=== PATIENT | female | born 1940 | race Caucasian/White ===

== ENCOUNTER → 2016-08-12 | Outpatient (CLI) | payer BC ==
[~2016-08-12] MED LIST: ACET-1256 PO; ADVIN50/60 INH; ALBU1AER9 INH; ASPEC81 PO; ASTN; CETI10TA10 PO; CLTP PO; HYDR-5688 PO; MELA3CAP PO; NSNN50; PSYL0.524
== END | disposition home or self-care (01) ==
LOC: C.RDSM 13:57
PROVIDERS: ATTEND Orthopaedic Surgery Sports Medicine
DX: Z09 Encounter for follow-up examination after completed treatment for conditions other than malignant neoplasm (principal)

== ENCOUNTER → 2016-08-24 | Outpatient (CLI) | payer BC ==
--- NOTE | 2016-08-24 12:24 | DIAGNOSTIC IMAGING REPORT ---
ULTRASOUND OF THE THYROID GLAND CLINICAL HISTORY: Dysphonia. COMPARISON STUDY: Thyroid ultrasound dated 04/22 2009. TECHNIQUE: Real-time, grayscale, and color flow sonography of the thyroid gland is performed utilizing a high-frequency linear transducer. Images are reviewed in the transverse and longitudinal planes. FINDINGS: Right lobe: The right lobe of the thyroid gland is normal in size and homogeneous in echotexture, measuring 4.1 x 1.3 x 1.2 cm. Left lobe: The left lobe of the thyroid gland is normal in size and homogeneous in echotexture, measuring 4.5 x 2.0 x 1.3 cm. A hypoechoic nodule in the midpole measures 1.0 x 0.8 x 0.8 cm (previously measured 0.9 x 0.7 x 0.6 cm). Isthmus: The thyroid isthmus is normal in appearance and measures 0.3 cm in AP diameter. IMPRESSION: 1. The thyroid gland is normal in size and adjacent echotexture. 2. A 1.0 cm left thyroid nodule has not significantly changed in appearance dating back to 2008. Electronically signed by: Ge Hernandez M.D. 08/24/2016 12:22 PM Dictated Date/Time: 08/24/2016 12:20 PM
== END | disposition home or self-care (01) ==
LOC: C.ULTRBC 11:57
PROVIDERS: ATTEND Family Medicine
DX: R49.0 Dysphonia (principal); E04.1 Nontoxic single thyroid nodule; R92.1 Mammographic calcification found on diagnostic imaging of breast

== ENCOUNTER → 2016-08-24 | Outpatient (CLI) | payer BC ==
--- NOTE | 2016-08-24 12:36 | MAMMOGRAPHY REPORT ---
BILATERAL DIGITAL DIAGNOSTIC MAMMOGRAM TOMOSYNTHESIS WITH CAD: 08/24/2016 CLINICAL HISTORY: 12 month follow-up of left breast calcifications. The patient reports no current complaints. TECHNIQUE: Breast tomosynthesis in addition to standard 2D mammography was performed. Current study was also evaluated with a Computer Aided Detection (CAD) system. Bilateral CC and MLO 2-D and yue synthesis images and spot magnification left CC and ML views were obtained. COMPARISON: Comparison is made to exams dated: 04/07/2015 mammogram, 10/06/2014 mammogram, 4 mammogram, 03/27/2014 mammogram, 03/26/2013 mammogram, and 08/31/2011 mammogram - [facility]. BREAST COMPOSITION: There are scattered areas of fibroglandular density in both breasts. FINDINGS: Again noted is a small group of faint calcifications seen within the left upper outer sukhi drant, best seen on the current full-field images, which are stable compared to spot magnification v iews dating back to March 2014. In retrospect, the calcifications are also likely present on full -field views dating back to 2009 and 2008. Given the long-term stability, the calcifications are co nsidered benign. The remainder of both breasts are stable compared to prior exams, without suspicious masses, calcifi cations, or areas of architectural distortion noted. IMPRESSION: ACR BI-RADS CATEGORY 2: BENIGN The faint calcifications in the left upper outer quadrant are stable compared to multiple prior exam s, and are considered benign given long-term stability. There is no mammographic evidence of malign og in either breast. A 1 year screening mammogram is recommended. The patient has been verbally n otified of the results. Approximately 10% of breast cancers are not detected with mammography. A negative mammographic repor t should not delay biopsy if a clinically suggestive mass is present. Romy Cervantes M.D. ah/:08/24/2016 10:54:02 [employer]ters[employer] Screw Hole: Grace LÓPEZ)(Jess), [facility] letter sent: Normal 1/2 BI-RADS Code: ACR BI-RADS Category 2: Benign
== END | disposition home or self-care (01) ==
LOC: C.MAMM 09:54
PROVIDERS: ATTEND Family Medicine
DX: R92.1 Mammographic calcification found on diagnostic imaging of breast (principal)

== ENCOUNTER → 2016-09-29 | Outpatient (CLI) | payer BC ==
--- NOTE | 2016-09-29 11:49 | DIAGNOSTIC IMAGING REPORT ---
CHEST 2 VIEWS ROUTINE CLINICAL HISTORY: HOARSENESS (784.42) dyspnea COMPARISON STUDY: 11/24/2015 FINDINGS: Slight chronic interstitial prominence. Apical fibrotic scarring bilaterally. No acute infiltrate. Diaphragms are smooth but somewhat scarred on the right. This is unchanged. IMPRESSION: Chronic change. No acute process. Electronically signed by: Emmett Ruiz M.D. 09/29/2016 11:47 AM Dictated Date/Time: 09/29/2016 11:47 AM
== END | disposition home or self-care (01) ==
LOC: C.RADBBURG 11:33
PROVIDERS: ATTEND Physician Assistant
DX: R49.0 Dysphonia (principal)

== ENCOUNTER → 2016-10-21 | Outpatient (CLI) | payer BC ==
[2016-10-21 12:16] LABS: BASO % 0.3 %; BASO ABS # 0.02 K/uL (0-0.2); COMPLETE YES; EOS % 16.3 %; HEMATOCRIT 40.2 % (37-47); IG% 0.3 %; LYMPH ABS # 0.93 K/uL (1.2-3.4); MEAN CELL VOLUME 91.4 fL (80-100); MEAN CORPUSCULAR HEMOGLOBIN 30.5 pg (25-34); MEAN CORPUSCULAR HGB CONC 33.3 g/dl (32-36); MEAN PLATELET VOLUME 8.9 fL (7.4-10.4); MONO % 4.7 %; NEUT % 63.4 %; PLATELET COUNT 346 K/uL (130-400); WHITE BLOOD COUNT 6.18 K/uL (4.8-10.8)
[2016-10-21 12:24] LABS: PARTIAL THROMBOPLASTIN RATIO 1.1; PROTHROMBIN TIME (PATIENT) 10.5 SECONDS (9.0-12.0)
[2016-10-21 12:34] LABS: ALT/SGPT 20 U/L (12-78); BLOOD UREA NITROGEN 15 mg/dl (7-18); BUN/CREATININE RATIO 19.5 (10-20); CARBON DIOXIDE 27 mmol/L (21-32); CHLORIDE 106 mmol/L (98-107); CREATININE 0.76 mg/dl (0.60-1.20); GLUCOSE 104 mg/dl (70-99); POTASSIUM 4.2 mmol/L (3.5-5.1); SODIUM 139 mmol/L (136-145)
[2016-10-21 12:37] LABS: ALKALINE PHOSPHATASE 74 U/L (45-117); AST/SGOT 15 U/L (15-37)
[2016-10-21 12:55] LABS: CALCIUM 10.8 mg/dl (8.5-10.1)
== END | disposition home or self-care (01) ==
LOC: C.LAB1850 11:06
PROVIDERS: ATTEND Physician Assistant
DX: R05 Cough (principal)

== ENCOUNTER → 2016-10-25 | Outpatient (CLI) | payer BC ==
[~2016-10-25] MED LIST changes: +OPTIRAY 320 IV PRN
--- NOTE | 2016-10-25 14:24 | DIAGNOSTIC IMAGING REPORT ---
CHEST CT WITH CONTRAST CT DOSE: 262.16 mGycm HISTORY: Dyspnea R05 Cough [place] [facility] at 1:45/ Patient aware and TECHNIQUE: Multiaxial CT images of the chest were performed following the intravenous administration of contrast. COMPARISON: 05/01/2010 FINDINGS: Mild chronic apical fibrotic change bilaterally. This is unchanged. Mild bronchiectatic changes anterior aspect right middle lobe as well as the lingula also similar. No new or interval findings. There is no significant mediastinal or hilar adenopathy. IMPRESSION: 1. No change in the prior study. 2. Stable chronic bronchiectatic changes of the anterior right middle lobe as well as lingula. 3. Stable emphysematous change with unaltered apical fibrotic change. Electronically signed by: Emmett Ruiz M.D. 10/25/2016 2:22 PM Dictated Date/Time: 10/25/2016 2:18 PM
== END | disposition home or self-care (01) ==
LOC: C.CTS 13:18
PROVIDERS: ATTEND Physician Assistant
DX: R05 Cough (principal)

== ENCOUNTER 2016-10-31 08:29 | Day surgery (SDC) | payer BC ==
[2016-10-31] VITALS (15 sets, daily range): BP systolic 104–161; BP diastolic 65–83; PULSE 59–76; TEMP 36.4–36.9; O2SAT 92–99; Ht 162.6 cm; Wt 64.0 kg
[~2016-10-31] VITALS: Ht 162.6 cm; Wt 64.0 kg
[~2016-10-31 08:29] MED LIST changes: -HYDR-5688 PO; -OPTIRAY 320 IV PRN; -PSYL0.524
[2016-10-31] MEDS ORDERED: FENTANYL CITRATE INJ 50 MCG/1 ML 2 ML VIAL IV ONE ×2 (08:30→11:00)
[2016-10-31] MEDS ORDERED: LIDOCAINE 4% INH SOLN 4 ML BTL ONE (08:30)
[2016-10-31] MEDS ORDERED: MIDAZOLAM HCL 5 MG/ML 1 ML VIAL IV ONE ×2 (08:30→11:00)
[2016-10-31] MEDS ORDERED: LIDOCAINE HCL 2% LOCAL 50ML VIAL INFIL ONE (08:30)
[2016-10-31] MEDS ORDERED: PSYL0.524 (09:04)
[2016-10-31] MEDS ORDERED: NURSING VERBAL MED ORDER ONE ×2 (09:45→10:45)
[2016-10-31] MEDS ORDERED: SODIUM CHLORIDE 0.9% 1000ML 1,000 ML IV SCH (10:00)
--- NOTE | 2016-10-31 10:02 | History & Physical Bridge Note ---
H&P Re-Evaluation Bridge Note: I have examined the patient, reviewed the History & Physical and in the interval since the performance of the History & Physical I have noted the following changes of clinical significance: No changes noted
--- NOTE | 2016-10-31 10:02 | Procedure Note ---
Pre-Mod Sedation Assessment General Date of Moderate Sedation: October 31, 2016. Vital Signs: Vital Signs Past 12 Hours Date Time Temp Pulse Resp B/P Pulse Ox O2 Delivery O2 Flow Rate FiO2 10/31/16 09:57 36.5 75 18 128/69 93 Room Air 10/31/16 09:05 36.5 75 18 128/69 93 Room Air Review Cardiovascular: regular rate, rhythm, no edema, no gallop, no JVD, no murmur, normal peripheral pulses Abdomen: normal bowel sounds, non tender, soft, no organomegaly, no pulsatile mass, normal rectal exam, occult blood negative Lungs: + rhonchi, + wheezing Pre-Sedation Airway Assessment Oral Cavity: Capped Teeth Able to Visualize Vocal Cords: Yes Short Thick Neck: No Hx of Sleep Apnea: No Smoking Status: Former Smoker Mallampati Classification: Class II ASA Classification: Class II Procedure Planning Contraindications-for Mod Sed: None Yes Notes The planned sedation has been discussed with the patient and consent obtained. I have identified the patient, determined the appropriateness of sedation and have assessed the patient immediately prior to the procedure. All medicine(s) and interventions are by my order.
--- NOTE | 2016-10-31 10:49 | Bronchoscopy Procedure Note ---
Bronchoscopy Procedure Note Procedure: Bronchoscopy, conscious sedation, BAL RML Consent: Obtained through the patient placed into the chart Preprocedural diagnosis: Chronic Bronchiectasis Postprocedural diagnosis: Chronic Bronchiectasis Start time: 1025 End time: 1038 Total time: Analgesia: 2% liquid lidocaine: Via nebulizer 4% gel lidocaine: Via right naris 2% liquid lidocaine: Via bronchoscopy Sedation: Versed IV: 2 mg Fentanyl IV: 50 g Procedure: The [email or web address] video bronchoscope was used for this procedure and initially passed through the right naris Right naris/posterior naris/posterior oropharynx: Anatomically within normal limits Glottis: Anatomically within normal limits Vocal cords: Proper abduction and abduction, anatomically within normal limits Subglottis/trachea/Lissette: Anatomically within normal limits Right bronchial tree: Right mainstem bronchus: Anatomically within normal limits Right upper lobe: Anatomically within normal limits Bronchus intermedius: Anatomically within normal limits Right middle lobe: Anatomically within normal limits Right lower lobe: Anatomically within normal limits Findings: diffuse mucus secretions greatest in the RLL Left bronchial tree: Left mainstem bronchus: Anatomically within normal limits Left upper lobe: Anatomically within normal limits Lingula: Anatomically within normal limits Left lower lobe: Anatomically within normal limits Findings: minimal mucus secretions Bronchial alveolar lavage: 60cc lavage with 40cc returned of the RLL EBL: none Complications: None Follow-up: [facility]
--- NOTE | 2016-10-31 10:50 | Procedure Note ---
Post-Moderate Sedation Plan General Date of Moderate Sedation October 31, 2016. Vital Signs: Vital Signs Past 12 Hours Date Time Temp Pulse Resp B/P Pulse Ox O2 Delivery O2 Flow Rate FiO2 10/31/16 10:43 71 20 113/78 94 Room Air 4.0 Nasal Cannula 10/31/16 10:40 63 22 129/75 96 Room Air 4.0 Nasal Cannula 10/31/16 10:35 64 21 129/75 99 Room Air 4.0 Nasal Cannula 10/31/16 10:30 65 19 143/74 98 Room Air 4.0 Nasal Cannula 10/31/16 10:25 65 23 155/79 99 Room Air 4.0 Nasal Cannula 10/31/16 10:20 65 19 161/80 99 Room Air 4.0 Nasal Cannula 10/31/16 10:15 75 18 161/83 93 Room Air 4.0 Nasal Cannula 10/31/16 09:57 36.5 75 18 128/69 93 Room Air 10/31/16 09:05 36.5 75 18 128/69 93 Room Air Review - Discharge Plan Post Moderate Sedation Plan: On clinical assessment, the patient appears to have tolerated the conscious sedation without complications. Patient is recovering as anticipated. Patient will continue to be monitored by nursing and may be discharged when conscious sedation discharge criteria are met.
--- NOTE | 2016-10-31 10:53 | Discharge Instructions ---
Discharge Instructions Date of Service October 31, 2016. Admission Reason for Admission: Cough, Asthma, Bronchiectasis Discharge Discharge Diagnosis / Problem: Chronic Bronchiectasis Discharge Goals Goal(s): Improve function, Diagnostic testing Activity Recommendations Activity Limitations: resume your previous activity . Instructions / Follow-Up Instructions / Follow-Up Follow-Up with the [facility] in the next 7-10 days Current Hospital Diet Patient's current hospital diet: Discharge Diet Recommended Diet: Regular Diet Procedures Procedures Performed: Bronchoscopy, Bronchial Lavage of the right middle lobe and consious sedation Pending Studies Studies pending at discharge: yes List of pending studies: bacterial and fungal analysis of the bronchial lavage Medical Emergencies . Who to Call and When: Medical Emergencies: If at any time you feel your situation is an emergency, please call 911 immediately. . Non-Emergent Contact Non-Emergency issues call your: Musical Therapist Call Non-Emergent contact if: temperature is above 101.5 . . "Provider Documentation" section prepared by Warner Morris. . VTE Core Measure Inpt VTE Proph given/why not?: Treatment not indicated
== END 2016-10-31 13:00 | disposition home or self-care (01) ==
LOC: C.ACU 08:29
PROVIDERS: ATTEND Internal Medicine Critical Care Medicine
DX: J47.9 Bronchiectasis, uncomplicated (principal); J45.909 Unspecified asthma, uncomplicated; K21.9 Gastro-esophageal reflux disease without esophagitis; Z79.82 Long term (current) use of aspirin; Z79.52 Long term (current) use of systemic steroids; Z82.3 Family history of stroke

== ENCOUNTER → 2016-12-13 | Outpatient (CLI) | payer BC ==
[~2016-12-13] MED LIST changes: -ADVIN50/60 INH; +PSYL0.524
--- NOTE | 2016-12-13 08:59 | DIAGNOSTIC IMAGING REPORT ---
TWO VIEW CHEST CLINICAL HISTORY: Asthma. Bronchiectasis. FINDINGS: PA and lateral chest radiographs are compared to study dated 09/29/2016 and correlated with chest CT dated 10/25/2016. The cardiomediastinal silhouette is unremarkable. The lungs appear hyperinflated. Chronic interstitial thickening and nodularity is unchanged. No airspace consolidation or pleural effusion is identified. Right middle lobe and lingular bronchiectasis seen by CT is not apparent by x-ray. Biapical scarring is observed. There is no pneumothorax. The skeletal structures are osteopenic. The bony thorax appears intact. IMPRESSION: No acute cardiopulmonary abnormality. Electronically signed by: Ge Hernandez M.D. 12/13/2016 8:58 AM Dictated Date/Time: 12/13/2016 8:56 AM
== END | disposition home or self-care (01) ==
LOC: C.RAD1850 08:44
PROVIDERS: ATTEND Physician Assistant
DX: J45.909 Unspecified asthma, uncomplicated (principal); J47.9 Bronchiectasis, uncomplicated

== ENCOUNTER → 2017-01-31 | Outpatient (CLI) | payer BC ==
--- NOTE | 2017-01-31 13:37 | DIAGNOSTIC IMAGING REPORT ---
RIGHT WRIST MIN 3 VIEWS ROUTINE CLINICAL HISTORY: Right wrist pain COMPARISON: None. DISCUSSION: No acute fractures are visualized. The bones are osteopenic. There is an old corticated ossicle adjacent the ulnar styloid. Osteoarthritic changes are present most pronounced the level the first carpal metacarpal joint. IMPRESSION: No acute fractures. Osteopenia. Osteoarthritic changes most pronounced the level the first carpal metacarpal joint. Electronically signed by: Milan Chino M.D. 01/31/2017 1:36 PM Dictated Date/Time: 01/31/2017 1:35 PM
== END | disposition home or self-care (01) ==
LOC: C.RAD 13:15
PROVIDERS: ATTEND Nurse Practitioner
DX: M25.531 Pain in right wrist (principal); M85.841 Other specified disorders of bone density and structure, right hand

== ENCOUNTER → 2017-03-02 | Outpatient (CLI) | payer BC ==
[2017-03-02 09:39] LABS: HEMATOCRIT 37.1 % (37-47); MEAN CELL VOLUME 91.8 fL (80-100); MEAN CORPUSCULAR HEMOGLOBIN 31.2 pg (25-34); MEAN PLATELET VOLUME 9.2 fL (7.4-10.4); PLATELET COUNT 355 K/uL (130-400); RED BLOOD COUNT 4.04 M/uL (4.2-5.4); WHITE BLOOD COUNT 6.72 K/uL (4.8-10.8)
[2017-03-02 10:09] LABS: ESTIMATED AVERAGE GLUCOSE 120 mg/dl; HA1C FLAG Normal (Normal)
[2017-03-02 10:16] LABS: CHOLESTEROL/HDL RATIO 2.6
== END | disposition home or self-care (01) ==
LOC: C.LAB 08:27
PROVIDERS: ATTEND Family Medicine
DX: E78.2 Mixed hyperlipidemia (principal); R73.01 Impaired fasting glucose; T14.8 Other injury of unspecified body region; X58.XXXA Exposure to other specified factors, initial encounter

== ENCOUNTER → 2017-03-22 | Outpatient (CLI) | payer BC | END | disposition home or self-care (01) | LOC: C.MAMM 08:25 | PROVIDERS: ATTEND Family Medicine | DX: M85.89 Other specified disorders of bone density and structure, multiple sites (principal) ==

== ENCOUNTER → 2017-10-26 | Outpatient (CLI) | payer BC ==
--- NOTE | 2017-10-26 09:51 | DIAGNOSTIC IMAGING REPORT ---
CHEST 2 VIEWS ROUTINE CLINICAL HISTORY: Cough. COMPARISON STUDY: Chest radiograph December 13, [address] T. October. FINDINGS: There is no pneumothorax or pleural effusion. Pulmonary vascularity is normal. Biapical scarring is unchanged. Mild reticulonodular interstitial thickening within the lungs has developed since exam of December 13, 2016. Mild right middle lobe and lingular bronchiectasis is noted. IMPRESSION: Mild bronchiectasis and interval development of mild reticulonodular interstitial thickening within the lungs which suggests an infectious process such as an atypical mycobacterial infection. Electronically signed by: Stewart Anderson M.D. 10/26/2017 9:50 AM Dictated Date/Time: 10/26/2017 9:48 AM
== END | disposition home or self-care (01) ==
LOC: C.RAD1850 09:31
PROVIDERS: ATTEND Physician Assistant
DX: J47.9 Bronchiectasis, uncomplicated (principal); R91.8 Other nonspecific abnormal finding of lung field

== ENCOUNTER → 2017-11-02 | Outpatient (CLI) | payer BC ==
--- NOTE | 2017-11-02 11:44 | DIAGNOSTIC IMAGING REPORT ---
VIDEO SWALLOW HISTORY: Cough. Suspected aspiration. R05 TECHNIQUE: Video fluoroscopic evaluation of swallowing was performed in the AP and lateral projections by the speech pathology staff. The patient is fed nectar-thick and thin liquid barium, a barium coated wafer, and barium pudding. FLUOROSCOPY TIME: 1.3 minutes. NUMBER OF FLUOROSCOPY IMAGES: 0 COMPARISON STUDY: None. FINDINGS: The swallowing mechanics were within functional limits for age. There is no aspiration or penetration. IMPRESSION: 1. Normal study 2. Please see the speech pathologist report for detailed findings and recommendations. Electronically signed by: Milan Chino M.D. 11/02/2017 11:42 AM Dictated Date/Time: 11/02/2017 11:41 AM
--- NOTE | 2017-11-02 14:24 | SWALLOWING EVALUATION ---
REFERRING SPEECH PATHOLOGIST: n/a HISTORY: This 77 year-old female was referred for a VFSS at [facility] in order to rule out aspiration. The patient has a PMH significant for bronchiectasis, asthma, cough, and vocal fold polyp (resolved). Currently the patient's diet level is regular. PROCEDURE: The patient was seen in the Radiology Department of [facility] for the VFSS. Cursory examination of the oral cavity revealed adequate dentition. Movement of the articulators was WNL. The patient was seated on a stool and was viewed in both the Anterior-Posterior (A-P) and Lateral planes. Volitional phonation exercises completed in the A-P plane revealed bilateral vocal fold movement and vocal intensity within functional limits. In the lateral plane, the patient was given the following boluses: 1 tsp. thin liquid barium x 2, single swallow thin liquid barium self-presented from a cup, sequential swallows of thin liquid barium self-presented from a cup, 1 tsp. nectar-thick liquid barium, single swallow nectar-thick liquid barium self-presented from a cup, 1 tsp. barium pudding, and 1 club cracker with barium pudding. The patient was then repositioned into the A-P plane and given 1 tsp. barium pudding. RESULTS: Oral Stage: Labial seal, lingual control for oral bolus hold, mastication, lingual movement for bolus transfer, oral clearance and pharyngeal swallow initiation all WNL. Normal oral-stage of swallow. Pharyngeal Stage: Velar elevation, laryngeal elevation, anterior hyoid excursion, epiglottic inversion, laryngeal vestibular closure, pharyngeal stripping wave, pharyngeal contraction, distention and duration of PES opening, tongue base retraction, and pharyngeal clearance all WNL. Normal pharyngeal-stage of swallow. No penetration or aspiration. Esophageal Stage: A pudding bolus transited the esophagus without impedance. SUMMARY/RECOMMENDATIONS: This patient presents with normal oral-pharyngeal swallowing. The following is recommended: 1. Regular diet 2. No further f/u re: dysphagia or aspiration is indicated at this time. A summary of the results and recommendations was discussed with the patient immediately following the study. She verbalized understanding. Thank you for referral of this patient. Please contact me at if any additional information is needed.
== END | disposition home or self-care (01) ==
LOC: C.RAD 11:01
PROVIDERS: ATTEND Physician Assistant
DX: R05 Cough (principal)

== ENCOUNTER → 2017-11-09 | Outpatient (CLI) | payer BC ==
--- NOTE | 2017-11-09 08:20 | DIAGNOSTIC IMAGING REPORT ---
(CHEST) THORAX WITHOUT CLINICAL HISTORY: 77 years-old Female presenting with bronchiectasis, cough. TECHNIQUE: Multidetector CT imaging of the chest was performed without the use of intravenous contrast. IV contrast: None. A dose lowering technique was used consistent with the principles of ALARA (as low as reasonably achievable). COMPARISON: 10/25/2016. CT DOSE (mGy.cm): The estimated cumulative dose is 231.81 mGy.cm. FINDINGS: Allergy Specialist topogram: Unremarkable. On soft tissue windows, normal thyroid and thoracic inlet. Few prominent lymph nodes in the pretracheal and precarinal regions measuring up to 10 mm in the short axis, nonspecific and possibly reactive. These are unchanged from prior. Evaluation of the crystal limited without intravenous contrast. Atherosclerosis of the aorta. Normal heart size. Coronary artery calcification. No pericardial or pleural effusion. Normal liver density. On lung windows, redemonstration of multifocal bronchiectasis involving all 5 lobes to varying degrees, most severely in the medial segment of the right middle lobe and inferior segment of the lingula. This has slightly progressed since the prior exam. Multifocal subsegmental debris noted in dilated airways. Punctate nodules also evident, which are poorly defined in largely peripheral and tree-in-bud in distribution. Mild mosaic attenuation suggest small airways disease. Pleural parenchymal scarring evident at the lung apices. Central airways patent. On bone windows, degenerative changes of the spine. IMPRESSION: 1. Continued slow interval progression of bronchiectatic change involving all 5 lobes but the right middle lobe and lingula most severely. The combination of this finding with numerous scattered punctate poorly defined nodules raises concern for mycobacterium avium intracellulare infection or another atypical mycobacterial infection. 2. Reactive mediastinal lymph nodes. The report will be called/faxed according to standard departmental protocol. Electronically signed by: Ariel Angulo M.D. 11/09/2017 8:19 AM Dictated Date/Time: 11/09/2017 8:11 AM
== END | disposition home or self-care (01) ==
LOC: C.CTS 07:57
PROVIDERS: ATTEND Physician Assistant
DX: J47.9 Bronchiectasis, uncomplicated (principal)

== ENCOUNTER 2018-10-29 17:07 | Inpatient (IN) ==
--- OUTSIDE RECORDS SUMMARY | 2018-10-29 17:11 | External Medical Summary | Continuity of Care Document ---
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 Refills: 0 ProAir HFA 108 (90 Base) MCG/ACT Inhalat ion Aerosol Solution; INHALE 2 PUFFS EVERY 4 HOURS NEEDED INDERJIT Whiting Start: 15-Feb-2012 Quantity: 1 8.5 GM Inhaler Refills: 5 Melatonin 5 MG Oral Tablet; 1 tablet a bedtime Refills: 0 Caltrate 600+D TABS; Take 1 tablet twice daily Refills: 0 Vortex Valved Holding Chamber Device; use with inhaler INDERJIT Whiting Start: 11-Aug-2016 Quantity: 1 Refills: 0 Montelukast Sodium 10 MG Oral Tablet; TAKE 1 TABLET DAILY. INDERJIT Bolanos Start: 02-Mar-2017 Quantity: 1 30 Tablet Bottle Refills: 3 Pantoprazole Sodium 20 MG Oral Tablet Delayed Release; TAKE 1 TABLET DAILY. INDERJIT Hyatt Start: 26-Oct-2017 Quantity: 1 90 Tablet Bottle Refills: 0 Symbicort 160-4.5 MCG/ACT Inhalation Aer osol; INHALE 2 PUFFS TWICE A DAY. RINSE MOUTH AFTER USE INDERJIT Hyatt Start: 08-Dec-2016 Quantity: 1 10.2 GM Inhaler Refills: 2 Albuterol Sulfate (2.5 MG/3ML) 0.083% In halation Nebulization Solution; USE 1 UNIT DOSE IN NEBULIZER EVERY 4 HOURS NEEDED. INDERJIT Whiting Start: 21-Oct-2016 Quantity: 4 60 x 3 ML Plas Cont Refills: 5 Metamucil [facility] Fiber 58.12 % Oral Packet; TAKE DIR ECTED NEEDED Start: 12-Nov-2015 Refills: 0 Mometasone Furoate 50 MCG/ACT Nasal Susp ension; USE 2 SPRAYS IN EACH NOSTRIL ONCE DAILY INDERJIT Whiting Start: 19-Feb-2015 Quantity: 1 17 GM Inhaler Refills: 5 ZyrTEC Allergy 10 MG Oral Capsule; one daily Refills: 0 Procedures History of Knee Arthroscopy With Medial Meniscectomy Status: Completed History of Simple Bunion Exostectomy (Silver Procedure) Status: Completed History of Anal Fissurectomy Status: Com pleted History of Biopsy Thyroid Using Percutaneous Core Needle Status: Completed History of Bronchoscopy (Diagnostic) Sta tus: Completed History of Dilation And Curettage Status : Completed Immunizations Tdap (Adacel) On: 2005 Zoster (Zostavax) On: 2010 Pneumococcal polysaccharide vaccine, 23 valent On: 2010 Influenza On: Mar-2012 Prevnar 13 Intramuscular Suspension On: 2014 Fluzone High-Dose Intramuscular Suspension On: Mar-2017 Family History Mother Family history of Status: Active Family history of cerebrovascular accident (V17.1) (Z82.3) S tatus: Active Unknown Family Member Family history of asthma (V17.5) (Z82.5) Status: Active Comments: Unknown Father Family history of cerebrovascular accident (V17.1) (Z82.3) S tatus: Active Social History - Smoking Status Former smoker Plan of Treatment Planned Encounters Appointment; Adriana Hyatt PA-C Start: 08-Apr-2019 10:00 R equest Planned Observations Planned Goals not documented Results No Known Results Results not documented Vital Signs 08-Oct-2018 13:59 Systolic 122 mm[Hg] Comments: Location: E; Position: Sitting Diastolic 84 mm[Hg] Comments: Location: E; Position: Sitting Height 64 in O2 Saturation 95 % Comments: Source: RA BSA Calculated 1.69 m2 BMI Calculated 24.44 kg/m2 Temperature 97.6 f Respiration 15 /min Heart Rate 74 /min 08-Oct-2018 13:23 Height 64 in BSA Calculated 1.69 m2 BMI Calculated 24.44 kg/m2 Weight 142.4 lb Encounters Appointment; Adriana Hyatt PA-C 08-Oct-2018 14:00 Encounter Diagnosis: Problem not documented Appointment; Pulmonary, Funct Testing 08-Oct-2018 13:00 Encounter Diagnosis: Problem not documented Appointment; Adriana Hyatt PA-C 04-Jun-2018 13:45 Encounter Diagnosis: Problem not documented Appointment; Adriana Hyatt PA-C 31-Jan-2018 9:30 Encounter Diagnosis: Problem not documented Appointment; Adriana Hyatt PA-C 18-Dec-2017 10:30 Encounter Diagnosis: Problem not documented Appointment; Warner Morris M.D. 11-Dec-2017 9:00 Encounter Diagnosis: Problem not documented Appointment; Adriana Hyatt PA-C 22-Nov-2017 13:00 Encounter Diagnosis: Problem not documented Appointment; Saw Whiting PA-C 26-Oct-2017 8:30 Encounter Diagnosis: Problem not documented Appointment; Saw Whiting PA-C 03-May-2017 9:15 Encounter Diagnosis: Problem not documented Appointment; Saw Whiting PA-C 02-Mar-2017 15:15 Encounter Diagnosis: Problem not documented Appointment; Saw Whiting PA-C 09-Feb-2017 13:15 Encounter Diagnosis: Problem not documented Appointment; Adriana Hyatt PA-C 24-Jan-2017 14:00 Encounter Diagnosis: Problem not documented Appointment; Adriana Hyatt PA-C 08-Dec-2016 13:15 Encounter Diagnosis: Problem not documented Appointment; Saw Whiting PA-C 25-Nov-2016 13:15 Encounter Diagnosis: Problem not documented Appointment; Saw Whiting PA-C 10-Nov-2016 11:30 Encounter Diagnosis: Problem not documented Appointment; Warner Morris M.D. 31-Oct-2016 10:00 Encounter Diagnosis: Problem not documented Appointment; Adriana Hyatt PA-C 08-Apr-2019 10:00 Encounter Diagnosis: Problem not documented
[2018-10-29] MEDS ORDERED: HYDROmorphone INJ 0.5 MG/0.5 ML SYR IV PRN (17:26)
[2018-10-29] MEDS ORDERED: ONDANSETRON INJ 2 MG/ML 2 ML VIAL IV STA (17:26)
[2018-10-29] MEDS: HYDROmorphone INJ 0.5 MG/0.5 ML SYR IV PRN ×2 (17:40→21:13)
[2018-10-29 17:46] LABS: Basophils # (auto) 0.01 K/uL (0-0.2); Basophils % (auto) 0.1 %; Eosinophils # (auto) 0.08 K/uL (0-0.5); Eosinophils % (auto) 0.6 %; Hematocrit (blood only) 38.8 % (37-47); Hemoglobin 13.2 g/dL (12.0-16.0); Immature Granulocytes # (auto) 0.12 K/uL (0.00-0.02); Immature Granulocytes % (auto) 0.9 %; Lymphocytes # (auto) 1.08 K/uL (1.2-3.4); Mean Corpuscular Volume 90.9 fL (80-100); Mean Platelet Volume 9.1 fL (7.4-10.4); Monocytes # (auto) 0.91 K/uL (0.11-0.59); Monocytes % (auto) 6.8 %; Neutrophils # (auto) 11.22 K/uL (1.4-6.5); Neutrophils % (auto) 83.6 %; Platelet Count 322 K/uL (130-400); RDW Coefficient of Variation 14.1 % (11.5-14.5); RDW Standard Deviation 46.4 fL (36.4-46.3); Red Blood Count 4.27 M/uL (4.2-5.4); White Blood Count 13.42 K/uL (4.8-10.8)
--- NOTE | 2018-10-29 18:00 | XRay Report ---
XR hip RT min 2V HISTORY: 78 years-old Female fall acute right hip pain status post fall COMPARISON: None available TECHNIQUE: 2 views of the right hip FINDINGS: Moderate right hip osteoarthritis. Degenerative changes of the imaged lumbar spine. No acute fracture , dislocation or avascular necrosis of the right hip. There is an acute mildly displaced fracture abo ut the right superior pubic ramus. IMPRESSION: 1. Acute mildly displaced fracture about the right superior pubic ramus. 2. No acute fracture or dislocation of the right hip identified. The above report was generated using voice recognition software. It may contain grammatical, syntax o r spelling errors. Electronically signed by: Lupillo Snyder M.D. 10/29/2018 5:59 PM
[2018-10-29 18:03] LABS: Partial Thromboplastin Time 26.5 Seconds (21.0-31.0); Prothrombin Time 10.3 Seconds (9.0-12.0)
[2018-10-29 18:07] LABS: BUN Creatinine Ratio 27.5 (10-20); Calcium 9.4 mg/dl (8.5-10.1); Creatinine Clr Calc Pharmacy 57.2 ml/min; Est GFR (Non-African American) 73.3; Potassium 3.6 mmol/L (3.5-5.1)
--- NOTE | 2018-10-29 19:42 | History & Physical Report ---
Date of Service October 29, 2018 Assessment & Plan (1) Closed fracture of right pelvis: s/p fall with closed fracture of the right pelvis. Patient is in considerable pain. Strength/sensation and pulses intact. Most likely non- operative -Admit to medical floor -Pain control with Tylenol 500mg PO q 4 hours, Lidoderm patch, Morphine 2mg IV q 2 hours PRN -Bowel regimen with Colace, Dulcolax, Miralax PRN -Zofran PRN nausea -PT/OT assessment -Consider Orthopedic consultation in AM Present on Admission?: Yes (2) Asthma: No SOB, cough or wheeze at present -Continue Singulair -Continue Symbicort and Albuterol PRN (3) Seasonal allergies: Stable -Continue Cetirizine -Continue mometasone F/E/N - [place]. Electrolytes WNL. Regular diet as tolerated Ppx - Protonix PO daily, SCDs Code - DNR per discussion with patient Dispo - Admit to med-surge History of Present Illness Chief Complaint: pelvic fracture Primary Care Provider: Rosendo Jessica Vieira is a pleasant 78yo female with history of asthma presenting with a pelvic fracture after a mechanical fall at home. Patient states that she was washing blankets around 15:00 today. She was hanging the blankets up to dry and her feet became tangled causing her to fall. She fell onto her right hip. She was able to pull her legs up to her chest but had some severe pain with movement. She called her son to bring her sister's walker - patient was able to shuffle with a walker with some difficulty and pain therefore she called EMS and was brought to the ER. Xray revealed an acute mildly displaced fracture of the right superior pubic ramus. ER Course: Dilaudid 0.25mg IV x 2, Zofran 4mg IV Allergies Allergy/AdvReac Type Severity Reaction Status Date / Time bacitracin Allergy Mild Rash Verified 10/29/18 18:28 neomycin Allergy Mild Rash Verified 10/29/18 18:28 nickel Allergy Mild RASH TO Verified 10/29/18 18:28 NICKEL SULFATE polymyxin B Allergy Mild Rash Verified 10/29/18 18:28 Penicillins Allergy Unknown RASH Verified 10/29/18 18:28 clarithromycin AdvReac Mild NAUSEA/VOMI Verified 10/29/18 18:28 TING Home Medications Home Medications Medication Instructions Recorded Confirmed Type albuterol sulfate [ProAir HFA] 2 puff INHALATION Q4H PRN 10/29/18 10/29/18 History aspirin 81 mg PO DAILY 10/29/18 10/29/18 History budesonide-formoterol [Symbicort] 2 puff INHALATION BID 10/29/18 10/29/18 History calcium carbonate-vitamin D3 1 tab PO BID 10/29/18 10/29/18 History [Caltrate 600 + D] cetirizine 10 mg PO QAM 10/29/18 10/29/18 History melatonin 5 mg PO HS 10/29/18 10/29/18 History mometasone 1 spray INTRANASAL DAILY 10/29/18 10/29/18 History montelukast 10 mg PO QPM 10/29/18 10/29/18 History pantoprazole 20 mg PO QAM 10/29/18 10/29/18 History psyllium husk [Metamucil] 0.52 g PO DAILY 10/29/18 10/29/18 History Past Med/Surg History Medical History Asthma (Chronic) Surgical History No pertinent past surgical history Family History Other Family history non-contributory Social History Feels Safe at Home: Yes Smoking Status: Former smoker Hx Alcohol Use: Yes Hx Substance Use: No Review of Systems Review of Systems: All systems reviewed & are unremarkable except as noted in HPI & below Physical Exam Physical Exam: General: patient resting, in mild pain, NAD, non-toxic in appearance, AA&O x 4 Skin: warm, dry, intact, no rashes or lesions HEENT: NC/AT, PERRL, EOMI, anicteric sclera, conjunctiva without injection, external ear normal to inspection and nontender, nares patent, moist mucus membranes, dentition intact, no oropharyngeal lesions, neck supple, trachea midline, no LAD, no thyromegaly, no JVD Heart: +S1/S2, regular, no m/r/g Lungs: equal air entry bilaterally, no rales/rhonchi/wheezes Abd: +BS, soft, NT/ND, no masses/organomegaly/ascites Ext: warm, 2+ pulses in UE/LE bilaterally, no clubbing/cyanosis or edema Neuro: nonfocal, patient AA&O x 4, speech intact, no facial droop, moving all extremities on command with equal strength 5/5 Results & Data Vital Signs (Past 12 Hours) Vital Signs Temp Pulse Resp BP Pulse Ox 10/29/18 19:00 78 20 176/94 H 10/29/18 18:00 119 H 25 H 10/29/18 17:48 78 16 95 10/29/18 17:46 76 15 155/87 H 95 10/29/18 17:18 36.6 C 74 17 168/77 H 95 Laboratory Results Lab Results 10/29/18 10/29/18 10/29/18 Range/Units 17:32 17:32 17:32 WBC 13.42 H (4.8-10.8) K/uL RBC 4.27 (4.2-5.4) M/uL Hgb 13.2 (12.0-16.0) g/dL Hct 38.8 (37-47) % MCV 90.9 (80-100) fL MCH 30.9 (25-34) pg MCHC 34.0 (32-36) g/dL RDW Std Deviation 46.4 H (36.4-46.3) fL RDW Coeff of Olivia 14.1 (11.5-14.5) % Plt Count 322 (130-400) K/uL MPV 9.1 (7.4-10.4) fL Immature Gran % (Auto) 0.9 % Neut % (Auto) 83.6 % Lymph % (Auto) 8.0 % [place] % (Auto) 6.8 % Eos % (Auto) 0.6 % Baso % (Auto) 0.1 % Immature Gran # (Auto) 0.12 H (0.00-0.02) K/uL Neut # (Auto) 11.22 H (1.4-6.5) K/uL Lymph # (Auto) 1.08 L (1.2-3.4) K/uL [place] # (Auto) 0.91 H (0.11-0.59) K/uL Eos # (Auto) 0.08 (0-0.5) K/uL Baso # (Auto) 0.01 (0-0.2) K/uL PT 10.3 (9.0-12.0) Seconds INR 1.0 (0.9-1.1) APTT 26.5 (21.0-31.0) Seconds PTT Ratio 1.0 Sodium 140 (136-145) mmol/L Potassium 3.6 (3.5-5.1) mmol/L Chloride 107 (98-107) mmol/L Carbon Dioxide 27 (21-32) mmol/L Anion Gap 6.0 (3-11) BUN 21 H (7-18) mg/dl Creatinine 0.78 (0.6-1.2) mg/dl Est Cr Clr Drug Dosing 57.2 ml/min Est GFR ( Amer) 85.0 Est GFR (Non-Af Amer) 73.3 BUN/Creatinine Ratio 27.5 H (10-20) Glucose 102 H (70-99) mg/dl Calcium 9.4 (8.5-10.1) mg/dl Diagnostic Findings XR hip RT min 2V HISTORY: 78 years-old Female fall acute right hip pain status post fall COMPARISON: None available TECHNIQUE: 2 views of the right hip FINDINGS: Moderate right hip osteoarthritis. Degenerative changes of the imaged lumbar spine. No acute fracture, dislocation or avascular necrosis of the right hip. There is an acute mildly displaced fracture about the right superior pubic ramus. IMPRESSION: 1. Acute mildly displaced fracture about the right superior pubic ramus. 2. No acute fracture or dislocation of the right hip identified. The above report was generated using voice recognition software. It may contain grammatical, syntax or spelling errors. Electronically signed by: Lupillo Snyder M.D. 10/29/2018 5:59 PM Dictated: 10/29/181756 Transcribed: 10/29/181756 Code Status & VTE Plan Code Status DNR per discussion with patient (1) Closed fracture of right pelvis Encounter type: initial encounter Fracture alignment: displaced Fracture morphology: unspecified fracture morphology Pelvic bone location: ilium Qualified Code(s): S32.301A - Unspecified fracture of right ilium, initial encounter for closed fracture (2) Asthma Asthma severity: moderate Asthma persistence: persistent Asthma complication type: uncomplicated Qualified Code(s): J45.40 - Moderate persistent asthma, uncomplicated
[2018-10-29 21:09] LABS: Appearance Urine Clear (Clear); Bilirubin Urine Negative (Negative); Blood Urine Negative (Negative); Color Urine Yellow; Glucose Urine UA Negative (Negative); Ketones Urine Trace (Negative); Leukocyte Esterase Urine Negative (Negative); Nitrite Urine Negative (Negative); Protein Urine Negative (Negative); Specific Gravity Urine 1.018 (1.000-1.030); Urobilinogen Urine Negative (Negative)
[2018-10-29] MEDS ORDERED: POLYETHYLENE (MIRALAX) 17 GM PACK PO PRN (21:37)
[2018-10-29] MEDS ORDERED: ONDANSETRON INJ 2 MG/ML 2 ML VIAL IV PRN (21:37)
[2018-10-29] MEDS ORDERED: MoRPHine SULFATE 2 MG/ML CARP IV PRN (21:37)
[2018-10-29] MEDS ORDERED: BISACODYL 10 MG SUPP PR PRN (21:37)
[2018-10-29] MEDS ORDERED: ALBUTEROL HFA 8 GM INHALER INH PRN (21:37)
[2018-10-29] MEDS ORDERED: DOCUSATE SODIUM 100 MG CAP PO PRN (21:37)
--- NOTE | 2018-10-29 23:07 | Emergency Department Note ---
Entered by Glenn Garcia acting as a scribe for Aleks Gay MD ED Provider Note CHIEF COMPLAINT: right hip pain after mechanical fall HISTORY OF PRESENT ILLNESS: The patient is a 78 year old female who presents to the Emergency Room with complaints of constant right hip pain after a mechanical fall occurring prior to arrival. The patient reports that her feet became caught in a sheet and she tripped, falling onto her right side. She did not strike her head and denies other injuries. She states that she was eventually able to slide on the floor over to the couch and then walk by shuffling her feet with the support of a small table. She states that her right hip pain is exacerbated with movement and rates it 8/10. She has seen Dr. Pereira [facility] in the past for a wrist fracture. Pt denies LOC, headache, fevers, chills, diaphoresis, visual changes, neck pain, chest pain, breathing difficulties, nausea, vomiting, abdominal pain, back pain, melena, hematochezia, urinary symptoms, numbness, weakness, lymphadenopathy, rash, or other complaints. REVIEW OF SYSTEMS: See HPI for pertinent positives and negatives. A total of ten systems were reviewed and were otherwise negative. PMHx/PSHx: asthma and bronchiectasis SOCIAL HISTORY: Patient lives at home. PHYSICAL EXAM: GENERAL: Awake, alert, uncomfortable appearing, no distress. HEAD: Normocephalic, atraumatic. No alvarado sign. No raccoon eyes. EYES: Normal conjunctiva. PERRL. EARS: External ears normal. Right TM normal. Left TM normal. NOSE: Atraumatic OROPHARYNX: Lips, tongue, and mucosa unremarkable. No erythema or exudate. NECK: No tracheal deviation or JVD. No posterior midline tenderness. No step offs noted. RESPIRATORY: CTA bilaterally. Breath sounds equal. No wheezes. No rhonchi. Normal respiratory effort. CARDIAC: Normal rate, normal rhythm. No murmurs. No rubs. ABDOMEN: Inspection reveals no abnormalities. Soft, non distended. No tenderness to palpation. No hernias. BACK: No midline step offs or tenderness to palpation. Unremarkable. PELVIS: Stable to rock. SKIN: Normal. LYMPH: No adenopathy. MUSCULOSKELETAL: There is tenderness to palpation of the right greater trochanter. Hip ROM is limited secondary to pain. No shortening or external rotation. The remainder of the right lower extremity is nontender, NVI, and atraumatic. Upper extremities and left lower extremity are atraumatic. NEURO: GCS 15. Normal sensorium. No sensory or motor deficits noted. ED COURSE: 1721: The patient was evaluated in room A9B. A complete history and physical examination were performed. 183: I updated the patient on results. She feels better but still has significant pain with movement. 1840: I consulted Dr. [facility], who feels the patient needs non- operative management. 190: I consulted Dr. Hernandez [facility] Hospital[facility]. The patient will be reevaluated for hospitalization. MEDICAL DECISION MAKING: Triage Nursing notes reviewed and agree them. The patient's history was concerning for traumatic injury. Differential diagnosis: Etiologies such as fracture, dislocation, neurovascular compromise, compartment syndrome, soft tissue injury, as well as others were entertained. Physical examination: Consistent with an isolated right-sided injury. ER treatment provided: IV lock Zofran 4mg IV Dilaudid IV NPO Bedrest On reassessment the patient felt better. Diagnostics interpreted by me: The labs revealed an unremarkable CBC and chemistry panel except for subtle leukocytosis. Urinalysis negative. Imaging studies: X-ray imaging of the right hip reveal no evidence of hip fracture however there is a pelvic fracture present. The patient has an isolated right pelvic fracture and will need admission to the hospital as she has significant pain with any movement. Consultation: A consultation was placed with orthopedics, Dr. Sullivan. The case was discussed and diagnostics were reviewed. He recommended nonoperative treatment. Consultation was made with the hospitalist service. The patient was evaluated in the ER for further treatment. IMPRESSION: right pelvic fracture, victim of fall PLAN: evaluation by hospitalist The scribe's documentation has been prepared under my direction and personally reviewed by me in its entirety. I confirm that the note above accurately reflects all work, treatment, procedures, and medical decision making performed by me. Impression & Plan Closed fracture of right pelvis, Fall Past Med/Surg History Medical History Asthma (Chronic) Surgical History No pertinent past surgical history Family History Other Family history non-contributory Social History Preferred Language: [place]ian Communication Ability: Effective Hand Box Coverer Required: No Beliefs That Will Affect Care: Zoroastrian Zoroastrian Beliefs: [facility] Current Living Situation: Alone Feels Safe at Home: Yes Safety Concerns: Feels Safe At This Time Smoking Status: Former smoker Do You Dip or Chew Tobacco: No Smoking End Date: quit in her mid 20's Second Hand Exposure: No Hx Alcohol Use: Yes Hx Substance Use: No Results & Data Vital Signs Vital Signs - 24 hr 10/29/18 17:18 10/29/18 17:46 10/29/18 17:48 Temperature 36.6 C Temperature Source Oral Sepsis Recent Fever Within 48 Hours No Sepsis Action Taken by Nursing No Action Required Pulse Rate 74 76 78 Pulse Rate [Left Finger] Pulse Rate from SpO2 Sensor 74 70 Respiratory Rate 17 15 16 Respiratory Depth Normal Blood Pressure 168/77 H 155/87 H Blood Pressure [Left Arm] Blood Pressure Mean 107 109 Blood Pressure Mean [Left Arm] Blood Pressure Position [Left Arm] Pulse Oximetry 95 95 95 Oxygen Delivery Method Room Air 10/29/18 18:00 10/29/18 19:00 10/29/18 19:30 Temperature Temperature Source Sepsis Recent Fever Within 48 Hours Sepsis Action Taken by Nursing Pulse Rate 119 H 78 80 Pulse Rate [Left Finger] Pulse Rate from SpO2 Sensor Respiratory Rate 25 H 20 12 Respiratory Depth Blood Pressure 176/94 H 176/94 H Blood Pressure [Left Arm] Blood Pressure Mean 121 121 Blood Pressure Mean [Left Arm] Blood Pressure Position [Left Arm] Pulse Oximetry Oxygen Delivery Method 10/29/18 19:45 10/29/18 20:00 10/29/18 21:00 Temperature Temperature Source Sepsis Recent Fever Within 48 Hours Sepsis Action Taken by Nursing Pulse Rate 89 78 Pulse Rate [Left Finger] Pulse Rate from SpO2 Sensor Respiratory Rate 20 23 Respiratory Depth Blood Pressure Blood Pressure [Left Arm] Blood Pressure Mean Blood Pressure Mean [Left Arm] Blood Pressure Position [Left Arm] Pulse Oximetry Oxygen Delivery Method Room Air 10/29/18 21:01 10/29/18 21:06 10/29/18 21:07 Temperature Temperature Source Sepsis Recent Fever Within 48 Hours Sepsis Action Taken by Nursing Pulse Rate 87 75 75 Pulse Rate [Left Finger] Pulse Rate from SpO2 Sensor Respiratory Rate 22 19 19 Respiratory Depth Blood Pressure 219/171 H 155/95 H 163/70 H Blood Pressure [Left Arm] Blood Pressure Mean 187 115 101 Blood Pressure Mean [Left Arm] Blood Pressure Position [Left Arm] Pulse Oximetry Oxygen Delivery Method 10/29/18 21:17 10/29/18 21:31 Temperature 37.1 C Temperature Source Oral Sepsis Recent Fever Within 48 Hours Sepsis Action Taken by Nursing Pulse Rate Pulse Rate [Left Finger] 76 Pulse Rate from SpO2 Sensor Respiratory Rate 20 Respiratory Depth Blood Pressure Blood Pressure [Left Arm] 160/81 H Blood Pressure Mean Blood Pressure Mean [Left Arm] 107 Blood Pressure Position [Left Arm] Lying Pulse Oximetry 91 Oxygen Delivery Method Room Air Room Air Home Medications Current Medication List: was personally reviewed by me Laboratory Data Attestation: I reviewed the patient's lab results. Result diagrams: 10/29/18 17:32 10/29/18 17:32 Lab Results 10/29/18 10/29/18 10/29/18 Range/Units 17:32 17:32 17:32 WBC 13.42 H (4.8-10.8) K/uL RBC 4.27 (4.2-5.4) M/uL Hgb 13.2 (12.0-16.0) g/dL Hct 38.8 (37-47) % MCV 90.9 (80-100) fL MCH 30.9 (25-34) pg MCHC 34.0 (32-36) g/dL RDW Std Deviation 46.4 H (36.4-46.3) fL RDW Coeff of [place] 14.1 (11.5-14.5) % Plt Count 322 (130-400) K/uL MPV 9.1 (7.4-10.4) fL Immature Gran % (Auto) 0.9 % Neut % (Auto) 83.6 % Lymph % (Auto) 8.0 % [place] % (Auto) 6.8 % Eos % (Auto) 0.6 % Baso % (Auto) 0.1 % Immature Gran # (Auto) 0.12 H (0.00-0.02) K/uL Neut # (Auto) 11.22 H (1.4-6.5) K/uL Lymph # (Auto) 1.08 L (1.2-3.4) K/uL [place] # (Auto) 0.91 H (0.11-0.59) K/uL Eos # (Auto) 0.08 (0-0.5) K/uL Baso # (Auto) 0.01 (0-0.2) K/uL PT 10.3 (9.0-12.0) Seconds INR 1.0 (0.9-1.1) APTT 26.5 (21.0-31.0) Seconds PTT Ratio 1.0 Sodium 140 (136-145) mmol/L Potassium 3.6 (3.5-5.1) mmol/L Chloride 107 (98-107) mmol/L Carbon Dioxide 27 (21-32) mmol/L Anion Gap 6.0 (3-11) BUN 21 H (7-18) mg/dl Creatinine 0.78 (0.6-1.2) mg/dl Est Cr Clr Drug Dosing 57.2 ml/min Est GFR ( Amer) 85.0 Est GFR (Non-Af Amer) 73.3 BUN/Creatinine Ratio 27.5 H (10-20) Glucose 102 H (70-99) mg/dl Calcium 9.4 (8.5-10.1) mg/dl Urine Color Urine Appearance (Clear) Urine pH (4.5-7.5) Ur Specific [place] (1.000-1.030) Urine Protein (Negative) Urine Glucose (UA) (Negative) Urine Ketones (Negative) Urine Blood (Negative) Urine Nitrite (Negative) Urine Bilirubin (Negative) Urine Urobilinogen (Negative) Ur Leukocyte Esterase (Negative) 10/29/18 Range/Units 21:00 WBC (4.8-10.8) K/uL RBC (4.2-5.4) M/uL Hgb (12.0-16.0) g/dL Hct (37-47) % MCV (80-100) fL MCH (25-34) pg MCHC (32-36) g/dL RDW Std Deviation (36.4-46.3) fL RDW Coeff of [place] (11.5-14.5) % Plt Count (130-400) K/uL MPV (7.4-10.4) fL Immature Gran % (Auto) % Neut % (Auto) % Lymph % (Auto) % [place] % (Auto) % Eos % (Auto) % Baso % (Auto) % Immature Gran # (Auto) (0.00-0.02) K/uL Neut # (Auto) (1.4-6.5) K/uL Lymph # (Auto) (1.2-3.4) K/uL [place] # (Auto) (0.11-0.59) K/uL Eos # (Auto) (0-0.5) K/uL Baso # (Auto) (0-0.2) K/uL PT (9.0-12.0) Seconds INR (0.9-1.1) APTT (21.0-31.0) Seconds PTT Ratio Sodium (136-145) mmol/L Potassium (3.5-5.1) mmol/L Chloride (98-107) mmol/L Carbon Dioxide (21-32) mmol/L Anion Gap (3-11) BUN (7-18) mg/dl Creatinine (0.6-1.2) mg/dl Est Cr Clr Drug Dosing ml/min Est GFR ( Amer) Est GFR (Non-Af Amer) BUN/Creatinine Ratio (10-20) Glucose (70-99) mg/dl Calcium (8.5-10.1) mg/dl Urine Color Yellow Urine Appearance Clear (Clear) Urine pH 7.0 (4.5-7.5) Ur Specific [place] 1.018 (1.000-1.030) Urine Protein Negative (Negative) Urine Glucose (UA) Negative (Negative) Urine Ketones Trace H (Negative) Urine Blood Negative (Negative) Urine Nitrite Negative (Negative) Urine Bilirubin Negative (Negative) Urine Urobilinogen Negative (Negative) Ur Leukocyte Esterase Negative (Negative) Administered Medications Discontinued Medications Hydromorphone HCl (Dilaudid) 0.5 mg IV Q20M PRN PRN Reason: Severe Pain (Rating 7,8,9,10) Stop: 11/12/18 17:25 Last Admin: 10/29/18 21:13 Dose: 0.5 mg Documented by: [id number] Admin: 10/29/18 17:40 Dose: 0.5 mg Documented by: [id number] Ondansetron HCl (Zofran) 4 mg IV NOW STA Stop: 10/29/18 17:27 Last Admin: 10/29/18 17:40 Dose: 4 mg Documented by: [id number] Imaging Data Radiologist's Impression: Radiology results as stated below per my review and the radiologist's interpretation: XR hip RT min 2V HISTORY: 78 years-old Female fall acute right hip pain status post fall COMPARISON: None available TECHNIQUE: 2 views of the right hip FINDINGS: Moderate right hip osteoarthritis. Degenerative changes of the imaged lumbar spine. No acute fracture, dislocation or avascular necrosis of the right hip. There is an acute mildly displaced fracture about the right superior pubic ramus. IMPRESSION: 1. Acute mildly displaced fracture about the right superior pubic ramus. 2. No acute fracture or dislocation of the right hip identified. The above report was generated using voice recognition software. It may contain grammatical, syntax or spelling errors. Electronically signed by: Lupillo Snyder M.D. 10/29/2018 5:59 PM Blood Pressure Blood Pressure Findings: Elevated blood pressure Blood Pressure Disposition: further management by hospitalist Discharge Plan Visit Data *Final* Discharge Date/Time: 10/29/18 21:17 Chief Complaint: Hip Pain ED Provider: Aleks Gay Discharge Problem: Closed fracture of right pelvis, Fall Patient Disposition: Admitted As Inpatient Discharge Instructions Interventions: ED Discharge Assessment Last Done: 10/29/18 21:17 Discharge Problem: Closed fracture of right pelvis Qualifiers: Encounter type: initial encounter Pelvic bone location: ilium Fracture morphology: unspecified fracture morphology Fracture alignment: displaced Qualified Code(s): S32.301A - Unspecified fracture of right ilium, initial encounter for closed fracture Fall Qualifiers: Encounter type: initial encounter Qualified Code(s): W19.XXXA - Unspecified fall, initial encounter The scribe's documentation has been prepared under my direction and personally r eviewed by me in its entirety. I confirm that the note above accurately reflects all work, treatment, procedures, and medical decision making performed by me.
[2018-10-29] MEDS: ACETAMINOPHEN 500 MG TAB PO SCH (23:27)
[2018-10-29] MEDS: LIDOCAINE 5% 1 PATCH TD SCH (23:27)
[2018-10-29] MEDS: BUDESONIDE/FORMOTEROL FUMARATE 160/4.5 60 PUFFS/INHALER INH SCH (23:37)
[2018-10-29] MEDS: CALCIUM 600MG + VIT D 400 IU TAB PO SCH (23:37)
[2018-10-29] MEDS: MONTELUKAST SODIUM 10 MG TABLET PO SCH (23:37)
[2018-10-30] MEDS: ACETAMINOPHEN 500 MG TAB PO SCH ×6 (04:06→23:58)
[2018-10-30] MEDS ORDERED: PANTOprazole 40 MG TAB PO SCH (09:00)
[2018-10-30] MEDS: CETIRIZINE HCL 10 MG TABLET PO SCH (09:00)
[2018-10-30] MEDS: CALCIUM 600MG + VIT D 400 IU TAB PO SCH ×2 (09:00→20:27)
[2018-10-30] MEDS ORDERED: FLUTICASONE PROPIONATE NA SPR 16 GM BTL NAE SCH (09:00)
[2018-10-30] MEDS: ASPIRIN 81 MG ECTAB PO SCH (09:01)
[2018-10-30] MEDS: BUDESONIDE/FORMOTEROL FUMARATE 160/4.5 60 PUFFS/INHALER INH SCH ×2 (09:01→20:28)
[2018-10-30] MEDS ORDERED: Nursing to Pharmacy Communication ONE (09:10)
[2018-10-30] MEDS: PSYLLIUM 58.6% POWDER PACKET PO SCH (10:48)
--- NOTE | 2018-10-30 11:36 | Orthopedic Consultation ---
Date of Consultation October 30, 2018 Assessment & Plan (1) Closed fracture of right pelvis: 1) Continue pain control per medicine With Tylenol alternating with anti- inflammatories. If insufficient pain control with those medications, may consider mild PO narcotic such as tramadol. 2) PT/OT for transfers/gait training. 3) WBAT right lower extremity with walker. 4) D/C planning to consider placement vs home health. 5) Dr Pereira would like to see patient in office [facility] on 11-14-18 at 3:30 pm for Pelvis Xray series 3 views ( AP pelvis, inlet and outlet views). Patient advised she can call the office with any questions or concerns or if appt needs changed at [phone]. I, Dr. Pereira, saw and examined the patient and discussed the management with my PA. I reviewed my PAs note and agree with the documented findings and the plan of care I developed. Present on Admission?: Yes History of Present Illness Reason for Consultation: Closed Fracture Right Pelvis Requesting Physician: Dr Pereira Attending Physician: Connie Castro MD History of Present Illness 78 yr old female. Admitted to Medicine Service thru the ED on 10-29-18. Orthopedics Consulted. Patient had a mechanical fall at home after feet got tangled in a blanket that she was hanging insider her apartment. She fell onto her right hip. She had acute pain in right buttock/pelvis. She was able to eventually make her way onto her couch. She contacted her son that brought her to the ED. She had x-rays that showed an acute mildly displaced fracture of her right superior pubic ramus. Patient states she hasn't been out of bed since admitted. She has a gates placed. Her pain is controlled at rest if she isn't moving much with Tylenol, IV morphine, and lidoderm patch. She has a walker at home which she didn't use prior to this fall. She has a hospital wheeled walker in her room. PT/OT hasn't seen her yet today. A gates is placed. She saw Dr Pereira in 2016 for a wrist fracture that was treated in a cast with no issues. Currently she denies any other aches or pains. She denies SOB, CP, LE radiculopathy, N/T/R, or weakness of feet. Co-morbidities include asthma which is controlled with medication. She also takes Clatrate 600+D for bone health. She lives alone in a 1 floor apartment. She has family support from her son who works day shift. She is unsure if she will be able to go directly home after hospital stay. Allergies Allergy/AdvReac Type Severity Reaction Status Date / Time bacitracin Allergy Mild Rash Verified 10/29/18 18:28 neomycin Allergy Mild Rash Verified 10/29/18 18:28 nickel Allergy Mild RASH TO Verified 10/29/18 18:28 NICKEL SULFATE polymyxin B Allergy Mild Rash Verified 10/29/18 18:28 Penicillins Allergy Unknown RASH Verified 10/29/18 18:28 clarithromycin AdvReac Mild NAUSEA/VOMI Verified 10/29/18 18:28 TING Home Medications Home Medications Medication Instructions Recorded Confirmed Type albuterol sulfate [ProAir HFA] 2 puff INHALATION Q4H PRN 10/29/18 10/29/18 History aspirin 81 mg PO DAILY 10/29/18 10/29/18 History budesonide-formoterol [Symbicort] 2 puff INHALATION BID 10/29/18 10/29/18 History calcium carbonate-vitamin D3 1 tab PO BID 10/29/18 10/29/18 History [Caltrate 600 + D] cetirizine 10 mg PO QAM 10/29/18 10/29/18 History melatonin 5 mg PO HS 10/29/18 10/29/18 History mometasone 1 spray INTRANASAL DAILY 10/29/18 10/29/18 History montelukast 10 mg PO QPM 10/29/18 10/29/18 History pantoprazole 20 mg PO QAM 10/29/18 10/29/18 History psyllium husk [Metamucil] 0.52 g PO DAILY 10/29/18 10/29/18 History Patient History Medical History Asthma (Chronic) Surgical History No pertinent past surgical history Family History Other Family history non-contributory Social History Preferred Language: Telugu Communication Ability: Effective [employer]ision [employer] Required: No Beliefs That Will Affect Care: Gnosticism Gnosticism Beliefs: [facility] Current Living Situation: Alone Feels Safe at Home: Yes Safety Concerns: Feels Safe At This Time Smoking Status: Former smoker Do You Dip or Chew Tobacco: No Smoking End Date: quit in her mid 20's Second Hand Exposure: No Hx Alcohol Use: Yes Hx Substance Use: No Review of Systems Review of Systems: All systems reviewed & are unremarkable except as noted in HPI & below Physical Exam Physical Exam: Patient sitting up in bed. B SCDs and curtis hose donned. Right hip lidoderm patch in place. Notes pain in right buttock/pelvis when coughing. B LE NV intact. Palpable DP and PT pulses. Sensation intact to light touch. 5/5 B EHL, TA, gastroc strength. Neg homans. Calves soft. Focused right leg exam reveals painless right knee motion. Painless log rolling. She does have pain in her right buttock/ pelvis (she describes as deep hip) with right hip AAROM and PROM. She has difficulty with AROM of right hip due to pain including SLR. Skin intact. Nontender to her right buttock or hip to light touch. Dr. Pereira agree with above findings. RLE: NV intact. No pain with log roll hip. Able to extend knee. Results & Data Vital Signs (Past 12 Hours) Vital Signs Temp Pulse BP Pulse Ox 10/30/18 07:15 36.6 C 65 137/69 94 Laboratory Results 10/29/18 10/29/18 10/29/18 Range/Units 21:00 17:32 17:32 WBC (4.8-10.8) K/uL RBC (4.2-5.4) M/uL Hgb (12.0-16.0) g/dL Hct (37-47) % MCV (80-100) fL MCH (25-34) pg MCHC (32-36) g/dL RDW Std Deviation (36.4-46.3) fL RDW Coeff of Olivia (11.5-14.5) % Plt Count (130-400) K/uL MPV (7.4-10.4) fL Immature Gran % (Auto) % Neut % (Auto) % Lymph % (Auto) % [place] % (Auto) % Eos % (Auto) % Baso % (Auto) % Immature Gran # (Auto) (0.00-0.02) K/uL Neut # (Auto) (1.4-6.5) K/uL Lymph # (Auto) (1.2-3.4) K/uL [place] # (Auto) (0.11-0.59) K/uL Eos # (Auto) (0-0.5) K/uL Baso # (Auto) (0-0.2) K/uL PT 10.3 (9.0-12.0) Seconds INR 1.0 (0.9-1.1) APTT 26.5 (21.0-31.0) Seconds PTT Ratio 1.0 Sodium 140 (136-145) mmol/L Potassium 3.6 (3.5-5.1) mmol/L Chloride 107 (98-107) mmol/L Carbon Dioxide 27 (21-32) mmol/L Anion Gap 6.0 (3-11) BUN 21 H (7-18) mg/dl Creatinine 0.78 (0.6-1.2) mg/dl Est Cr Clr Drug Dosing 57.2 ml/min Est GFR ( Amer) 85.0 Est GFR (Non-Af Amer) 73.3 BUN/Creatinine Ratio 27.5 H (10-20) Glucose 102 H (70-99) mg/dl Calcium 9.4 (8.5-10.1) mg/dl Urine Color Yellow Urine Appearance Clear (Clear) Urine pH 7.0 (4.5-7.5) Ur Specific [place] 1.018 (1.000-1.030) Urine Protein Negative (Negative) Urine Glucose (UA) Negative (Negative) Urine Ketones Trace H (Negative) Urine Blood Negative (Negative) Urine Nitrite Negative (Negative) Urine Bilirubin Negative (Negative) Urine Urobilinogen Negative (Negative) Ur Leukocyte Esterase Negative (Negative) 10/29/18 Range/Units 17:32 WBC 13.42 H (4.8-10.8) K/uL RBC 4.27 (4.2-5.4) M/uL Hgb 13.2 (12.0-16.0) g/dL Hct 38.8 (37-47) % MCV 90.9 (80-100) fL MCH 30.9 (25-34) pg MCHC 34.0 (32-36) g/dL RDW Std Deviation 46.4 H (36.4-46.3) fL RDW Coeff of Olivia 14.1 (11.5-14.5) % Plt Count 322 (130-400) K/uL MPV 9.1 (7.4-10.4) fL Immature Gran % (Auto) 0.9 % Neut % (Auto) 83.6 % Lymph % (Auto) 8.0 % [place] % (Auto) 6.8 % Eos % (Auto) 0.6 % Baso % (Auto) 0.1 % Immature Gran # (Auto) 0.12 H (0.00-0.02) K/uL Neut # (Auto) 11.22 H (1.4-6.5) K/uL Lymph # (Auto) 1.08 L (1.2-3.4) K/uL [place] # (Auto) 0.91 H (0.11-0.59) K/uL Eos # (Auto) 0.08 (0-0.5) K/uL Baso # (Auto) 0.01 (0-0.2) K/uL PT (9.0-12.0) Seconds INR (0.9-1.1) APTT (21.0-31.0) Seconds PTT Ratio Sodium (136-145) mmol/L Potassium (3.5-5.1) mmol/L Chloride (98-107) mmol/L Carbon Dioxide (21-32) mmol/L Anion Gap (3-11) BUN (7-18) mg/dl Creatinine (0.6-1.2) mg/dl Est Cr Clr Drug Dosing ml/min Est GFR ( Amer) Est GFR (Non-Af Amer) BUN/Creatinine Ratio (10-20) Glucose (70-99) mg/dl Calcium (8.5-10.1) mg/dl Urine Color Urine Appearance (Clear) Urine pH (4.5-7.5) Ur Specific [place] (1.000-1.030) Urine Protein (Negative) Urine Glucose (UA) (Negative) Urine Ketones (Negative) Urine Blood (Negative) Urine Nitrite (Negative) Urine Bilirubin (Negative) Urine Urobilinogen (Negative) Ur Leukocyte Esterase (Negative) Diagnostic Findings [place], [place] [phone] XRay Report Patient: KATHIE DIEGO Admit Date: 10/29/18 MR#: [id number] Address1: [address] [place] [address] Acct ID:[id number] Date: 1940, Age: 78 Location: ED Sex: F Diagnosis: GROUND LEVEL FALL LANDED R HIP Netta Phy: Rosendo Lopez M.D. Service Date: 10/29/18 Interpreting Phy: Fortino Snyder Ordering Phy: Aleks Gay MD XR hip RT min 2V HISTORY: 78 years-old Female fall acute right hip pain status post fall COMPARISON: None available TECHNIQUE: 2 views of the right hip FINDINGS: Moderate right hip osteoarthritis. Degenerative changes of the imaged lumbar spine. No acute fracture, dislocation or avascular necrosis of the right hip. There is an acute mildly displaced fracture about the right superior pubic ramus. IMPRESSION: 1. Acute mildly displaced fracture about the right superior pubic ramus. 2. No acute fracture or dislocation of the right hip identified. (1) Closed fracture of right pelvis Encounter type: initial encounter Fracture alignment: displaced Fracture morphology: unspecified fracture morphology Pelvic bone location: ilium Qualified Code(s): S32.301A - Unspecified fracture of right ilium, initial encounter for closed fracture
[2018-10-30] MEDS: OXYCODONE/ACETAMINOPHEN 5mg/325mg TAB PO PRN (13:10)
--- NOTE | 2018-10-30 17:20 | Family Medicine Progress Note ---
Date of Service October 30, 2018 Assessment & Plan (1) Closed fracture of right pelvis: Closed fracture of right pelvis s/p mechanical fall with closed fracture - In considerable pain. Strength/sensation and pulses intact. -Pain control with Tylenol 500mg PO q 4 hours, Lidoderm patch, Morphine 2mg IV q 2 hours PRN. Added oxycodone -Bowel regimen with Colace, Dulcolax, Miralax PRN -Zofran PRN nausea -PT/OT assessment -Orthopedic consulted - Not a surgical candidate. WBAT with walker. PT/OT and outpatient follow up. Asthma: -Continue Singulair -Continue Symbicort and Albuterol PRN Seasonal allergies: Stable -Continue Cetirizine -Continue mometasone F/E/N - Heplock. Electrolytes WNL. Regular diet as tolerated Ppx - Protonix PO daily, SCDs Code - DNR per discussion with patient Dispo - Will likely need rehab placement Subjective Since admission continues to be in a lot of pain. Had been in bed all the time. Denies chest pain, shortness of breath, abdominal pain Physical Exam Constitutional: WD/WN, vitals as above + in distress Respiratory: normal respiratory effort, lungs clear to auscultation Cardiovascular: RRR, no murmur, no edema Psychiatric: A+Ox3, euthymic affect Results & Data Vital Signs (Past 12 Hours) Vital Signs Temp Pulse Resp BP Pulse Ox 10/30/18 15:06 36.9 C 64 19 126/75 93 10/30/18 07:15 36.6 C 65 137/69 94 (1) Closed fracture of right pelvis Encounter type: initial encounter Fracture alignment: displaced Fracture morphology: unspecified fracture morphology Pelvic bone location: ilium Qualified Code(s): S32.301A - Unspecified fracture of right ilium, initial encounter for closed fracture
[2018-10-30] MEDS: MONTELUKAST SODIUM 10 MG TABLET PO SCH (20:27)
[2018-10-30] MEDS: PANTOprazole 40 MG TAB PO SCH (20:27)
[2018-10-30] MEDS: FLUTICASONE PROPIONATE NA SPR 16 GM BTL NAE SCH (20:27)
[2018-10-30] MEDS: LIDOCAINE 5% 1 PATCH TD SCH (20:30)
[2018-10-31] MEDS: ACETAMINOPHEN 500 MG TAB PO SCH ×5 (03:49→20:10)
[2018-10-31] MEDS: PSYLLIUM 58.6% POWDER PACKET PO SCH (08:43)
[2018-10-31] MEDS: CETIRIZINE HCL 10 MG TABLET PO SCH (08:43)
[2018-10-31] MEDS: CALCIUM 600MG + VIT D 400 IU TAB PO SCH ×2 (08:44→20:10)
[2018-10-31] MEDS: BUDESONIDE/FORMOTEROL FUMARATE 160/4.5 60 PUFFS/INHALER INH SCH ×2 (08:44→20:10)
[2018-10-31] MEDS: ASPIRIN 81 MG ECTAB PO SCH (08:44)
[2018-10-31] MEDS: OXYCODONE/ACETAMINOPHEN 5mg/325mg TAB PO PRN (13:45)
--- NOTE | 2018-10-31 17:09 | Family Medicine Progress Note ---
Date of Service October 31, 2018 Assessment & Plan (1) Closed fracture of right pelvis: Closed fracture of right pelvis s/p mechanical fall with closed fracture - Still in considerable pain with minimal movement. Strength/sensation and pulses intact. -Pain control with Tylenol 500mg PO q 4 hours, Lidoderm patch, Morphine 2mg IV q 2 hours PRN. Added oxycodone -Bowel regimen with Colace, Dulcolax, Miralax PRN -Zofran PRN nausea -PT/OT assessment -Orthopedic consulted - Not a surgical candidate. WBAT with walker. PT/OT and outpatient follow up. Asthma: -Continue Singulair -Continue Symbicort and Albuterol PRN Seasonal allergies: Stable -Continue Cetirizine -Continue mometasone F/E/N - Heplock. Electrolytes WNL. Regular diet as tolerated Ppx - Protonix PO daily, SCDs Code - DNR per discussion with patient Dispo - Awaiting Rehab placement Subjective Pain still present but better controlled when not moving. denies chest pain, shortness of breath, abdominal pain Physical Exam Constitutional: WD/WN, vitals as above In distress with movement. comfortably when sitting still in the chair Respiratory: normal respiratory effort, lungs clear to auscultation Cardiovascular: RRR, no murmur, no edema Psychiatric: A+Ox3, euthymic affect Results & Data Vital Signs (Past 12 Hours) Vital Signs Temp Pulse Resp BP Pulse Ox 10/31/18 15:23 36.3 C L 75 16 155/80 H 95 10/31/18 07:21 36.7 C 62 16 146/82 H 96 (1) Closed fracture of right pelvis Encounter type: initial encounter Fracture alignment: displaced Fracture morphology: unspecified fracture morphology Pelvic bone location: ilium Qualified Code(s): S32.301A - Unspecified fracture of right ilium, initial encounter for closed fracture
[2018-10-31] MEDS: LIDOCAINE 5% 1 PATCH TD SCH (19:57)
[2018-10-31] MEDS: FLUTICASONE PROPIONATE NA SPR 16 GM BTL NAE SCH (20:09)
[2018-10-31] MEDS: MONTELUKAST SODIUM 10 MG TABLET PO SCH (20:10)
[2018-10-31] MEDS: PANTOprazole 40 MG TAB PO SCH (20:13)
[2018-11-01] MEDS: ACETAMINOPHEN 500 MG TAB PO SCH ×5 (00:22→15:19)
[2018-11-01] MEDS: PSYLLIUM 58.6% POWDER PACKET PO SCH (09:27)
[2018-11-01] MEDS: ASPIRIN 81 MG ECTAB PO SCH (09:27)
[2018-11-01] MEDS: CALCIUM 600MG + VIT D 400 IU TAB PO SCH (09:27)
[2018-11-01] MEDS: CETIRIZINE HCL 10 MG TABLET PO SCH (09:27)
[2018-11-01] MEDS: BUDESONIDE/FORMOTEROL FUMARATE 160/4.5 60 PUFFS/INHALER INH SCH (09:28)
[2018-11-01] MEDS: OXYCODONE/ACETAMINOPHEN 5mg/325mg TAB PO PRN (13:22)
--- NOTE | 2018-11-01 15:38 | Discharge Summary ---
Date of Service November 01, 2018 Admission HPI Per Admitting Provider Shahida Vieira is a pleasant 78yo female with history of asthma presenting with a pelvic fracture after a mechanical fall at home. Patient states that she was washing blankets around 15:00 today. She was hanging the blankets up to dry and her feet became tangled causing her to fall. She fell onto her right hip. She was able to pull her legs up to her chest but had some severe pain with movement. She called her son to bring her sister's walker - patient was able to shuffle with a walker with some difficulty and pain therefore she called EMS and was brought to the ER. Xray revealed an acute mildly displaced fracture of the right superior pubic ramus. ER Course: Dilaudid 0.25mg IV x 2, Zofran 4mg IV Principal Diagnosis Pelvic Fracture Discharge Exam Constitutional WD/WN, vitals as above In distress with movement but pain better Respiratory normal respiratory effort, lungs clear to auscultation Cardiovascular RRR, no murmur, no edema Psychiatric A+Ox3, euthymic affect Discharge Data Allergies Allergy/AdvReac Type Severity Reaction Status Date / Time bacitracin Allergy Mild Rash Verified 10/29/18 18:28 neomycin Allergy Mild Rash Verified 10/29/18 18:28 nickel Allergy Mild RASH TO Verified 10/29/18 18:28 NICKEL SULFATE polymyxin B Allergy Mild Rash Verified 10/29/18 18:28 Penicillins Allergy Unknown RASH Verified 10/29/18 18:28 clarithromycin AdvReac Mild NAUSEA/VOMI Verified 10/29/18 18:28 TING Consultations 10/29/18 19:50 ED Decision to Admit Stat 10/30/18 09:25 Consult Orthopedic Surgery Routine Hospital Course (1) Closed fracture of right pelvis: Closed fracture of right pelvis s/p mechanical fall with closed fracture - Pain controlled with oral meds - had taken percocet 1-2 in 24hrs Strength/sensation and pulses intact. -Kept onTylenol 500mg PO q 4 hours, Lidoderm patch, oxycodone. -Continue Bowel regimen with Colace, Dulcolax, Miralax PRN -Orthopedic consulted - Dr Pereira - Not a surgical candidate. WBAT with walker. PT/OT and outpatient follow up. -Being discharged to [facility] for rehab Asthma: -Continued Singulair -Continued Symbicort and Albuterol PRN Seasonal allergies: Stable -Continued Cetirizine -Continued mometasone Total Time Total Time Spent Total Time Spent (In Minutes): 35 Discharge Plan Discharge Items Patient Disposition: Transfer Snf Fac Reason For Visit: PELVIC FRACTURE Discharge Diagnosis: Pelvic Fracture Discharge Goals: Decrease discomfort and Improve function Activity: As commented below Activity Comment: WBAT with walker Non-emergency contact: Primary Care Provider Call non-emergency contact if: your symptoms worsen Follow-up/Referrals: Rosendo Lopez [Primary Care Provider] - Diet: Regular Addtl Provider Instructions: Please follow up with Dr. Pereira in 2 weeks. Follow up with your family physician in 1-2wks after discharge from [facility] Prescriptions: New oxycodone-acetaminophen [Percocet] 5-325 mg Tablet 1 tab PO Q4H 5 Days Qty: 15 RF: 0 lidocaine 5 % Adhesive Patch,Medicated 1 patch transdermal HS Qty: 1 RF: 0 Continued cetirizine 10 mg Tablet 10 mg PO QAM RF: 0 aspirin 81 mg Tablet,Delayed Release (Dr/Ec) 81 mg PO DAILY RF: 0 pantoprazole 20 mg tablet,delayed release (DR/EC) 20 mg PO QAM RF: 0 mometasone 50 mcg/actuation spray,non-aerosol 1 spray intranasal DAILY RF: 0 montelukast 10 mg tablet 10 mg PO QPM RF: 0 albuterol sulfate [ProAir HFA] 90 mcg/actuation HFA aerosol inhaler 2 puff inhalation Q4H PRN (Reason: Shortness Of Breath Or Wheezing) RF: 0 Symbicort 160-4.5 mcg/actuation HFA aerosol inhaler 2 puff inhalation BID RF: 0 Caltrate 600 + D 600 mg (1,500 mg)-800 unit Tablet,Chewable 1 tab PO BID RF: 0 psyllium husk [Metamucil] 0.52 gram Capsule 0.52 g PO DAILY RF: 0 melatonin 5 mg Tablet 5 mg PO HS RF: 0 Stand-Alone Forms: [facility] Discharge Orders: Discharge Order (Routine); Ordered 11/01/18 Ordered By: Connie Castro Skilled Items Patient informed of condition?: Yes DNR: No Discharge Level of Care: Skilled Communicable Disease: No Discharge Prognosis: Stable Admission Data Admit Date/Time: 10/29/18 19:33 Attending Provider: Connie Castro Admit Provider: Felicity Hernandez Primary Care Provider: Rosendo Lopez Other Providers: Felicity Hernandez ; Kalpesh Pereira Service: Surgical Services
== END 2018-11-01 17:03 | DRG 536 ==
LOC: ED 17:07 → SUATTDRO 19:33 → 3W 19:33

== ENCOUNTER 2025-04-29 08:07 | Observation (INO) ==
--- NOTE | 2025-04-14 11:13 | PAT Medication Instructions ---
Medication Instructions Date of Service April 14, 2025 Home Medications Medication Instructions Recorded albuterol sulfate 90 mcg/actuation 2 puff inhalation Q4H PRN 08/15/23 aerosol inhaler (ProAir HFA) Shortness Of Breath Or Wheezing #18 grams nebulizer accessories #1 ea 08/21/23 mometasone 50 mcg/actuation nasal 2 spray intranasal HS #51 grams 03/11/24 spray fluticasone fur. 100 mcg-umeclid 1 inh inhalation QAM #3 Inhalers 05/10/24 62.5 mcg-vilant 25 mcg inhalat.powder (Trelegy Ellipta) albuterol sulfate 2.5 mg/3 mL 2.5 mg (3 mL) inhalation Q4H PRN 06/28/24 (0.083 %) solution for nebulization Shortness Of Breath Or Wheezing #180 mL sodium chloride 3 % for 4 ml inhalation BID PRN Cough and 06/28/24 nebulization Congestion #750 mL montelukast 10 mg tablet 10 mg PO QPM #90 tabs 12/04/24 calcium 600 mg (as carbonate)-vit D3 20 mcg (800 unit) chewable tablet (Caltrate plus D) 1 tab PO QAM alendronate 70 mg tablet 70 mg PO Q7D albuterol sulfate 90 mcg/actuation aerosol inhaler (ProAir HFA) 2 puff inha lation Q4H PRN psyllium husk 0.52 gram capsule (Metamucil) 0.52 g PO QAM acetaminophen 325 mg tablet 650 mg PO QID PRN mometasone 50 mcg/actuation nasal spray 2 spray intranasal HS fluticasone fur. 100 mcg-umeclid 62.5 mcg-vilant 25 mcg inhalat.powder (Trelegy Ellipta) 1 inh inhalation QAM albuterol sulfate 2.5 mg/3 mL (0.083 %) solution for nebulization 2.5 mg (3 mL) inhalation Q4H PRN sodium chloride 3 % for nebulization 4 ml inhalation BID PRN cetirizine 10 mg tablet 10 mg PO DAILY PRN montelukast 10 mg tablet 10 mg PO QPM rosuvastatin 5 mg tablet 5 mg PO QPM aspirin 81 mg tablet,delayed release (Adult Aspirin Regimen) 81 mg PO QAM fexofenadine 180 mg tablet 180 mg PO QAM PRN ASK your prescriber and surgeon aspirin 81 mg tablet,delayed release (Adult Aspirin Regimen) 81 mg PO QAM DO NOT take the morning of surgery calcium 600 mg (as carbonate)-vit D3 20 mcg (800 unit) chewable tablet (Caltrate plus D) 1 tab PO QAM alendronate 70 mg tablet 70 mg PO Q7D psyllium husk 0.52 gram capsule (Metamucil) 0.52 g PO QAM cetirizine 10 mg tablet 10 mg PO DAILY PRN fexofenadine 180 mg tablet 180 mg PO QAM PRN Take morning of surgery With a small sip of water, OTHERWISE NOTHING TO EAT OR DRINK AFTER MIDNIGHT: albuterol sulfate 90 mcg/actuation aerosol inhaler (ProAir HFA) 2 puff inhalation Q4H PRN(use if needed; please bring with you to hospital day of surgery if possible) acetaminophen 325 mg tablet 650 mg PO QID PRN(if needed) fluticasone fur. 100 mcg-umeclid 62.5 mcg-vilant 25 mcg inhalat.powder (Trelegy Ellipta) 1 inh inhalation QAM albuterol sulfate 2.5 mg/3 mL (0.083 %) solution for nebulization 2.5 mg (3 mL) inhalation Q4H PRN(if needed) sodium chloride 3 % for nebulization 4 ml inhalation BID PRN(if needed) Take evening before surgery albuterol sulfate 90 mcg/actuation aerosol inhaler (ProAir HFA) 2 puff inhalation Q4H PRN(if needed) acetaminophen 325 mg tablet 650 mg PO QID PRN(if needed) mometasone 50 mcg/actuation nasal spray 2 spray intranasal HS albuterol sulfate 2.5 mg/3 mL (0.083 %) solution for nebulization 2.5 mg (3 mL) inhalation Q4H PRN(if needed) sodium chloride 3 % for nebulization 4 ml inhalation BID PRN(if needed) montelukast 10 mg tablet 10 mg PO QPM rosuvastatin 5 mg tablet 5 mg PO QPM Other Notes If you have any questions please call us at [phone] or [phone] or [phone] or [phone]
--- NOTE | 2025-04-14 15:42 | Anesthesiology Consultation ---
Date of Service April 14, 2025 Assessment & Plan (1) Encounter for pre-operative examination: - Infectious disease screening: Per assessment on 04/14/25- No known recent infectious disease contacts or current infectious disease symptoms. - Outpatient joint assessment: Pt currently scheduled for inpatient pathway. If surgeon requests review for outpatient joint pathway, patient is not a recommeneded candidate for outpatient joint program from anesthesia standpoint based on available information. - Allergy visit 12/19/24: "Pt. is an 84 y.o. female referred for evaluation of allergies to metals. She follows w/Dr. Pereira in Orthopedics and there is a plan for her to have knee replacement surgery but the surgery date has not yet been scheduled. She was referred to our clinic b/c she reports she has an allergy to nickel. In the past w/jewelry she has developed a rash at the site of where the jewelry comes in contact with her skin. For further evaluation True test patch test along with a custom metal patch test was placed. The custom metal patch contains titanium, aluminum, and chrome. She presents today for a patch test read. Her patch testing confirmed her allergy to nickel but also documented sensitivities to neomycin, fragrance mix, Gold sodium, bacitracin, and ethylenediamine dihydrochloride. We contacted Dr. Pereira's office to see what type of metal might be used during her procedure and they indicated titanium, chrome, and cobalt. Her titanium, chromium chloride, and cobalt dichloride were all negative. Patient literature was provided regarding each positive result. These sensitivities, specifically Nickel will need to be taken into consideration for surgery if it is scheduled. I discussed if her skin is itchy at the site of her patch test placement she can apply topical hydrocortisone cream." - Cardiology visit 03/21/25: "ASSESSMENT/PLAN: 1. SVT: She had brief episodes of SVT with her monitor, up to 28 beats in length. There was reported atrial fibrillation, but upon review of the rhythm strip by Dr. Messina, the episodes appeared to actually be SVT and not true a fib. There is therefore no current indication for anticoagulation therapy. She was asymptomatic with the episodes of SVT, therefore, no specific treatment is indicated at this time. 2. Preop: No angina at >4 METS of activity. No evidence of CHF or significant valvular abnormality. She is therefore at an acceptable risk for knee replacement without any additional cardiovascular testing or intervention." - Neurology visit 03/27/25: "84-year-old female with a history of transient vision disturbances potentially consistent with amaurosis fugax or migrainous phenomena, age related changes in the vitreous not completely excluded, has seen ophthalmology previously. She has had an extensive stroke evaluation, has a chronic lacunar infarct in the left ojeda radiata, CT angiography of the head and neck revealed mild diffuse atherosclerotic disease, no hemodynamically significant stenosis, cardiac monitoring revealed an episode of SVT, PACs, no atrial fibrillation, has seen cardiology in follow-up, no indication for anticoagulation. Patient planning to proceed with left total knee arthroplasty, may need the other knee done as well, no neurologic contraindication. She has started daily low-dose aspirin recently and will continue with this treatment, also on a low-dose of rosuvastatin. Additional counseling given to the patient regarding potential strokelike symptoms, need for immediate assessment in the emergency department in that context. If her symptoms significantly progress or change, I would be happy to reevaluate her in the future. Return to clinic on an as needed basis." Chart Review Chart Review: Acceptable Risk for Surgery and Patient seen in Pre Admission Testing Teaching & Discussion Pre-Anesthesia Teaching/Discussion Notes: Instructed NPO after midnight before surgery,except medications with 15 cc of water. Medication instructions provided according to the PAT guidelines. History Surgery Operation Date: 04/29/25 10:00 Proposed Procedures p Left Total Knee Arthroplasty - Kalpesh Nora Pereira MD Height/Weight Height: 5 ft 4.5 in Weight: 64.7 kg Allergies Allergy/AdvReac Type Severity Reaction Status Date / Time neomycin Allergy Mild Rash Verified 04/14/25 10:02 nickel Allergy Mild Rash to Verified 04/14/25 11:30 nickel sulfate polymyxin B Allergy Mild Rash Verified 04/14/25 10:02 Penicillins Allergy Unknown Rash Verified 04/14/25 11:30 clarithromycin AdvReac Mild Nausea/vomi Verified 04/14/25 11:30 ting Medications Home Medications Medication Instructions Recorded Confirmed Last Taken calcium 600 mg (as carbonate)-vit 1 tab PO QAM 04/08/19 04/14/25 04/11/23 D3 20 mcg (800 unit) chewable tablet (Caltrate plus D) alendronate 70 mg tablet 70 mg PO Q7D 03/16/20 04/14/25 11/18/23 albuterol sulfate 90 mcg/actuation 2 puff inhalation Q4H PRN 08/15/23 04/14/25 Unknown aerosol inhaler (ProAir HFA) Shortness Of Breath Or Wheezing #18 grams nebulizer accessories #1 ea 08/21/23 03/27/25 Unknown psyllium husk 0.52 gram capsule 0.52 g PO QAM Constipation 08/30/23 04/14/25 Unknown (Metamucil) acetaminophen 325 mg tablet 650 mg PO QID PRN Pain 11/03/23 04/14/25 Unknown mometasone 50 mcg/actuation nasal 2 spray intranasal HS #51 grams 03/11/24 04/14/25 Unknown spray fluticasone fur. 100 mcg-umeclid 1 inh inhalation QAM #3 Inhalers 05/10/24 04/14/25 Unknown 62.5 mcg-vilant 25 mcg inhalat.powder (Trelegy Ellipta) albuterol sulfate 2.5 mg/3 mL 2.5 mg (3 mL) inhalation Q4H PRN 06/28/24 04/14/25 Unknown (0.083 %) solution for nebulization Shortness Of Breath Or Wheezing #180 mL sodium chloride 3 % for 4 ml inhalation BID PRN Cough and 06/28/24 04/14/25 Unknown nebulization Congestion #750 mL cetirizine 10 mg tablet 10 mg PO DAILY PRN Allergy Symptoms 11/22/24 04/14/25 Unknown montelukast 10 mg tablet 10 mg PO QPM #90 tabs 12/04/24 04/14/25 Unknown rosuvastatin 5 mg tablet 5 mg PO QPM 12/11/24 04/14/25 Unknown aspirin 81 mg tablet,delayed 81 mg PO QAM 04/14/25 04/14/25 Unknown release (Adult Aspirin Regimen) fexofenadine 180 mg tablet 180 mg PO QAM PRN Allergy Symptoms 04/14/25 04/14/25 Unknown Past Medical History Medical History Amaurosis fugax Intermittent episodes between 07/2024-10/2024 of: vision changes/diplopia/lightheadedness/perceived green flases of light/blurry vision episodes Follows with [facility] neuro, unremarkable carotid imaging/ophthalmology evaluation; brain MRI 10/2024 with atrophy and chronic microvascular ischemic disease, incidental pineal gland cyst Asthma Bronchiectasis follows with Dr. Hammonds Carotid stenosis COPD (chronic obstructive pulmonary disease) GERD (gastroesophageal reflux disease) hx History of stroke Remote hx "many years ago"- evidence of old CVA noted on imaging; no residual effects Hx of supraventricular tachycardia Per [facility] 02/2025 visit: "SVT: She had brief episodes of SVT with her monitor, up to 28 beats in length. There was reported atrial fibrillation, but upon review of the rhythm strip by Dr. Messina, the episodes appeared to actually be SVT and not true a fib. There is therefore no current indication for anticoagulation therapy. She was asymptomatic with the episodes of SVT, therefore, no specific treatment is indicated at this time.." Osteoarthritis Knees Seasonal allergies Urinary incontinence Occasional Exercise / Class Metabolic Activity III < 4 Walking/Shop/Light housework Past Family History Family History Mother Colon cancer Other Asthma Family history non-contributory No family history of adverse response to anesthesia Denies family history of Bleeding disorder Past Surgical History Surgical History History of arthroscopic knee surgery meniscus repair left History of bronchoscopy multiple History of bunionectomy History of colonoscopy (2023) History of dilation and curettage Hx of bilateral cataract extraction S/P anal fissurectomy Past Anesthesia History No Hx of Anesthesia Complications and No Family Hx of Anesthesia Complications History of PONV No Hx of PONV and No Hx of Motion Sickness Social History Smoking Status: Former smoker Do You Dip or Chew Tobacco: No Smoking End Date: Quit 60 years ago Hx Alcohol Use: Yes Alcohol type: beer and wine alcohol intake frequency: holidays/special occasions only Hx Substance Use: No substance use type: does not use Review of Systems Patient denies chest pain, shortness of breath, dyspnea on exertion, fever, chills, cough, wheezing, palpitations. Physical Exam Vital Signs BP 174/83 P 64 SP02 96%RA RESP 16 Physical Mildly decreased cervical extension range of motion. Full TMJ range of motion. TMD 3 finger breaths Mallampati Score II Dentition: intact, + crowns Lungs: clear throughout to auscultation Cardiac: regular rate and rhythm, no murmurs noted Spine: normal Carotid arteries: negative bruit Extremities: no LE edema Lab Results Anesthesia Preop Results Results Anesthesia Widget: WBC 9.45 K/ul (4.8-10.8) 04/14/25 Hgb 12.8 g/dl (12.0-16.0) 04/14/25 Hct 39.3 % (37.0-47.0) 04/14/25 Plt 335 K/uL (130-400) 04/14/25 Na 138 mmol/L (136-145) 04/14/25 K 4.3 mmol/L (3.5-5.1) 04/14/25 Cl 105 mmol/L (98-107) 04/14/25 CO2 27 mmol/L (21-32) 04/14/25 BUN 16 mg/dl (6-23) 04/14/25 Creat 0.76 mg/dl (0.6-1.2) 04/14/25 Glucose Level 97 mg/dl (70-99(Fasting)) 04/14/25 PT 10.6 Seconds (9.0-12.0) 04/14/25 PTT 27 Seconds (21-31) 04/14/25 INR 1.0 (0.9-1.1) 04/14/25 Urine Color Yellow 04/14/25 Urine Appearance Clear (Clear) 04/14/25 Urine pH 6.0 (4.5-7.5) 04/14/25 Urine Specific [place] 1.025 (1.000-1.030) 04/14/25 Urine Protein Negative (Negative) 04/14/25 Urine Glucose (UA) Negative (Negative) 04/14/25 Urine Ketones Trace (Negative) H 04/14/25 Urine Blood Trace-intact (Negative) H 04/14/25 Urine Nitrite Negative (Negative) 04/14/25 Urine Bilirubin Negative (Negative) 04/14/25 Urine Urobilinogen Negative (Negative) 04/14/25 Urine Leukocyte Esterase Negative (Negative) 04/14/25 Urine WBC (Auto) 0-5 /hpf (0-5) 04/14/25 Urine RBC (Auto) 6-10 /hpf (0-2) H 04/14/25 Urine Hyaline Casts (Auto) 0-2 /lpf (0-2) 04/14/25 Urine Epithelial Cells (Auto) 3-5 /hpf (0-2) H 04/14/25 Urine Bacteria (Auto) None Seen (None Seen) 04/14/25 Blood Type O Positive 04/14/25 Antibody Screen NEGATIVE 04/14/25 Testing Electrocardiogram Date: 04/14/25 62bpm. SR with PACs. "Otherwise normal ECG" Chest X-Ray Date: 04/14/25 IMPRESSION: 1. No active cardiopulmonary disease. 2. Diffuse reticulations in both lung lower zones representing chronic changes secondary to prior infection. 3. Mild pleural thickening/scanty effusion at both costophrenic angles. 4. Stable on comparison. Other Testing Cardiac event monitor Date: 03/03/25 Prevailing rhythm is sinus Bpm to 116 bpm and average rate of 67 bpm. A-fib/flutter was observed less than 0.1% burden. 2.14% PACs. Less than 0.1% PVCs. 26 runs of SVT. Neck CTA Date: 01/10/25 IMPRESSION: 1. Mild atherosclerotic mural calcified plaques in bilateral carotid arteries without hemodynamically significant luminal narrowing. 2. Poor visualization of left common carotid artery at the thoracic inlet due to strong streak artifact of intravenous contrast. Doppler ultrasound is advised for clear visualization of this segment. Head CTA Date: 01/10/25 IMPRESSION: 1. There is no hemorrhage, mass effect, or evidence of acute territorial ischemia by CT criteria. 2. Unremarkable CT angiogram of the brain. Brain MRI Date: 11/09/24 IMPRESSION: 1. No acute intracranial abnormality. No acute or subacute infarct. 2. Involutional changes with chronic microvascular ischemic disease. 3. No abnormal enhancement.
[~2025-04-29 08:07] MED LIST changes: -ACET-1256 PO; -ALBU1AER9 INH; -ASPEC81 PO; -ASTN; +BUPIVACAINE 0.5 % 5 MG/1 ML PF 10ML VIAL ONE; -CETI10TA10 PO; -CLTP PO; -MELA3CAP PO; -NSNN50; -PSYL0.524; +ROPIVACAINE 0.5% 5 MG/ML 30 ML VIAL ONE
[2025-04-29] MEDS ORDERED: MIDAZOLAM HCL 1 MG/ML 2ML VIAL ONE (08:35)
[2025-04-29] MEDS ORDERED: PROPOFOL IV EMULSION 10 MG/ML 20 ML VIAL IV ONE (08:40)
[2025-04-29] MEDS: LR 500ML BOLUS, THEN 15ML/HR IV SCH (08:46)
[2025-04-29] MEDS: ACETAMINOPHEN 500 MG TAB PO SCH ×2 (08:46→15:37)
[2025-04-29] MEDS: CeleBREX 200 MG CAP PO SCH ×2 (08:46→20:15)
[2025-04-29] MEDS: LR 60ML/HR IV SCH (08:47)
[2025-04-29] MEDS ORDERED: DEXAMETHASONE SOD INJ 4 MG/ML VIAL ONE (09:16)
[2025-04-29] MEDS ORDERED: ONDANSETRON INJ 2 MG/ML 2 ML VIAL ONE (09:16)
[2025-04-29] MEDS ORDERED: PHENYLEPHRINE HCL 10 MG/ML VIAL ONE (09:17)
--- NOTE | 2025-04-29 09:23 | History & Physical Bridge Note ---
Date of Service April 29, 2025 History & Physical Bridge Note I have examined the patient, reviewed the History & Physical and in the interval since the performance of the History & Physical I have noted the following changes of clinical significance: no changes noted
[2025-04-29] MEDS ORDERED: ATROPINE SULFATE 0.1 MG/ML 10ML SYR IV PRN (09:24)
[2025-04-29] MEDS ORDERED: ONDANSETRON INJ 2 MG/ML 2 ML VIAL IV PRN ×2 (09:24→14:26)
[2025-04-29] MEDS ORDERED: ALBUT/IPRATROP 3MG/0.5MG NEB 3 ML VIAL INH PRN (09:24)
[2025-04-29] MEDS: TRANEXAMIC ACID 1,000 MG **IV Pre-op IV SCH (09:35)
[2025-04-29] MEDS: ORTHO JOINT ANESTHETIC ONE (10:32)
[2025-04-29] MEDS: ROPIV 0.5% 246mg, Ketorolac 30mg, EPINEPHrine 0.5mg in NSS INFIL SCH (11:42)
--- NOTE | 2025-04-29 12:10 | Post Operative Brief Note ---
Immediate Post Op Note Date of Surgery April 29, 2025 Pre & Post Diagnosis Operation Date: 04/29/25 10:00 Pre-Op Diagnosis: Left Knee Osteoarthritis Post-Op Diagnosis: Left Knee Osteoarthritis I identified the patient and participated in the time-out.: Yes Procedure Operation Date: 04/29/25 10:00 Actual Procedures p Left Total Knee Arthroplasty(Left) - Kalpesh Pereira MD Surgeon Kalpesh Pereira MD Student Services Counselor Nora Grant PA-C (No fellow avail) Estimated Blood Loss 50 Findings Consistent with Post-Op Diagnosis Fluids 1300 cc Specimens Left knee contents Anesthesia Type MAC Spinal Regional Complications none
--- NOTE | 2025-04-29 12:11 | Operative Report ---
Post Operative Report Pre & Post Diagnosis Operation Date: 04/29/25 10:00 Pre-Op Diagnosis: Left Knee Osteoarthritis Post-Op Diagnosis: Left Knee Osteoarthritis I identified the patient and participated in the time-out.: Yes Procedure Operation Date: 04/29/25 10:00 Actual Procedures p Left Total knee replacement, imageless computer assisted navigation (Left) - Kalpesh Pereira MD Surgeon Kalpesh Pereira MD Aviation Maintenance Instructor Nora Grant PA-C (No fellow avail) Estimated Blood Loss 50 Findings See Below Examined Under Anesthesia: ROM -- There was 0 degrees to 130 degrees of flexion Ligamentous examination -- revealed stable Una, posterior drawer, varus and valgus stress at 0 and 30 degrees. [place] Grade IV changes of medial compartment, Trochlea, grade II-III changes Patella and lateral compartment. Other than her sclerotic medial side, her bone was soft. Fluids 1300 cc Specimens Left knee contents Anesthesia Type MAC Spinal Regional Complications none Indications This is a 85-year-old female who has clinical and radiographic findings consistent with osteoarthritis of the left knee. I recommended that a left total knee replacement be performed. The patient understands the risks of surgery, which include but not limited to: bleeding, infection, re-operation, damage to nerves and arteries, continued knee pain, knee stiffness, DVT, and . The patient understands all these instructions and explanations, all his questions have been satisfactorily addressed, and the patient has elected to proceed. Informed consent was signed. Description of Procedure IMPLANTS: [employer] 1. Femur: Persona #6 left Std PS, Tivanium. 2. Tibia: D Left Tibia with 14 x 30 mm stem. 3. Insert: 11 mm PS poly Left I-D / -9. 4. Patella: 29 x 8 mm All Poxy. 5. Palacos cement. Nora Grant PA-C is assisting with positioning, retracting, and closure due to fellow not available. Procedure: The patient was taken to the Operating Room and placed in the supine position after spinal and adductor canal nerve block was administered. My initials and a multidisciplinary time-out were used to identify the left leg as the correct operative limb. A tourniquet was placed high on the thigh. Prior to the incision, 2 grams of intravenous Ancef were given. One g of TXA was given pre- operatively and another after the tourniquet was released. The left leg was then prepped and draped in a standard sterile fashion. An Esmarch was used to exsanguinate the leg, and the tourniquet was inflated to 250 mmHg. The planned mid-line 20 cm incision was created exposing the extensor mechanism. The medial parapatellar arthrotomy was made and the patella was everted. The patella was addressed first. It was prepared by reaming from 20 mm down to 11 mm. A semmetric 29 mm button was found to fit best. The peg holes were made in the standard fashion. The femur was addressed next and using computer assisted OrthoAlign with 3 degrees of flexion and 0 degrees of valgus, removing 10 mm in the standard fashion for the distal cut. The cut was made and after making the Tibial cut and checking the balancing using OrthoAlign Lantern, Flexion/Extension gap 13 mm laterally & 11 mm medially. The posterior referencing guide was placed and a 6 fit well. The 4-in-1 cutting block for a size 6 femur was placed. These cuts an d the cuts to place the box were made in the standard fashion. The distal pegs were created in the standard fashion. The tibia cut with using imageless computer assisted OrthoAlign, taking 2 mm from the medial low side. A D Tibial baseplate fit well. A trial with a 11 mm spacer showed excellent stability in both flexion and extension, with good ligament balance, and thumbs free patellar tracking. Range of motion of 0-135 degrees. The tibial baseplate was prepped for the keel and stem. A stem was used due to some areas of soft bone, to avoid subsidence. All components were removed. 90 ml of total knee cocktail were injected into the soft tissues and periosteum. All surfaces were copiously irrigated prior to placement of the components. The Tibial baseplate followed by femoral component were cemented in place and the 11 mm X3 poly was placed. Next, the patellar button was placed using the same cement. Once the cement had cured, the range of motion and stability were unchanged. The tourniquet was deflated. Hemostasis was obtained. Another 1g TXA was given. The extensor mechanism was closed with 1-0 Vicryl and 0 Stratafix with the knee bent approximately 60 degrees in a standard fashion. The peritenon and deep fascia was closed with 2-0 Vicryl. The subcutaneous layer was closed with 3-0 Vicryl. The skin was closed with Zipline and shield. The limb was cleaned and dried. 4x4 dressing was placed over top followed by ABDs, sterile Webril, and a foot to thigh Adolfo bandage. The patient was then transferred to the Recovery Room in stable condition. The sponge and needle counts were correct. POST-OP INSTRUCTIONS: The patient will be WBAT. The patient will be admitted to the hospital. Complete 24-hour course antibiotics. Labs will be obtained during the stay. DVT prophylaxis will include aspirin for 6 weeks, TEDs, and mechanical foot pumps. The dressing will be changed, postop day #2-3, and covered with a Silverlon dressing. I attest to the content of the Intraoperative Record and any orders documented therein. Any exceptions are noted below.
--- NOTE | 2025-04-29 12:44 | Operative Report ---
Post Operative Report Pre & Post Diagnosis Operation Date: 04/29/25 10:00 Pre-Op Diagnosis: Left Knee Osteoarthritis Post-Op Diagnosis: Left Knee Osteoarthritis I identified the patient and participated in the time-out.: Yes Procedure Operation Date: 04/29/25 10:00 Actual Procedures p Left Total Knee Arthroplasty(Left) - Kalpesh Pereira MD Surgeon Kalpesh Pereira MD Wire Mesh Filter Fabricator Nora Grant PA-C (No fellow avail) Estimated Blood Loss 50 Findings Consistent with Post-Op Diagnosis Specimens Routine bone and soft tissue Description of Procedure I was present for the entire case. I assisted with patient positioning, prepping, draping, retraction, suctioning, hardware management, wound closure, dressing application. Please refer to Dr. Pereira's procedure note for full details. I attest to the content of the Intraoperative Record and any orders documented therein. Any exceptions are noted below.
--- NOTE | 2025-04-29 13:20 | XRay Report ---
XR knee LT 1 or 2V routine CLINICAL HISTORY: Postoperative evaluation. COMPARISON: Left knee radiographs June 27, 2024. FINDINGS: Alignment of the total left knee arthroplasty is anatomic. There is no periprosthetic frac ture or unexpected radiopaque foreign body. IMPRESSION: Expected findings following total left knee arthroplasty. ACT 112: Negative or not required by law. Electronically signed by: Stewart Anderson M.D. 04/29/2025 1:17 PM
[2025-04-29] MEDS ORDERED: CETIRIZINE HCL 10 MG TABLET PO PRN (14:26)
[2025-04-29] MEDS ORDERED: HYDROmorphone INJ 0.5 MG/0.5 ML SYR IV PRN (14:26)
[2025-04-29] MEDS ORDERED: ALBUTEROL 0.083% NEBU SOLN 3 ML VIAL INH PRN (14:26)
[2025-04-29] MEDS ORDERED: NALOXONE HCL 0.4 MG/1 ML VIAL/CARP IV PRN (14:26)
[2025-04-29] MEDS ORDERED: ALBUTEROL HFA 8 GM INHALER INH PRN (14:26)
[2025-04-29] MEDS ORDERED: diphenhydrAMINE Capsule 25 MG CAP PO PRN (14:26)
[2025-04-29] MEDS ORDERED: NON-FORMULARY MEDICATION (Nebulizer Accessories kit) SCH (14:26)
[2025-04-29] MEDS ORDERED: METOCLOPRAMIDE HCL INJ 5 MG/ML 2 ML VIAL IV PRN (14:26)
[2025-04-29] MEDS ORDERED: MAGNESIUM HYDROXIDE SUSP 30 ML UDC PO PRN (14:26)
[2025-04-29] MEDS ORDERED: ALUMINUM/MAGNESIUM SUSP 30 ML UDC PO PRN (14:26)
--- NOTE | 2025-04-29 14:33 | Anesthesiology Progress Note ---
Date of Service April 29, 2025 Anesthesia Post Procedure Vital Signs Vital Signs: Temp Pulse Pulse Resp BP Pulse Ox O2 Del Method 04/29/25 14:05 64 18 163/88 H 92 Room Air 04/29/25 13:45 59 L 24 180/96 H 96 Room Air 04/29/25 13:35 59 L 18 163/81 H 96 Room Air 04/29/25 13:25 56 L 17 159/72 H 95 Room Air 04/29/25 13:15 59 L 20 172/78 H 96 Room Air 04/29/25 13:05 60 20 172/78 H 96 Room Air 04/29/25 12:55 58 L 20 156/84 H 96 Room Air 04/29/25 12:45 62 18 150/72 H 95 Room Air 04/29/25 12:35 63 19 152/78 H 96 Room Air 04/29/25 12:26 36.1 C L 66 25 H 142/66 H 97 Room Air 04/29/25 08:30 36.3 C L 66 18 139/82 95 Room Air Notes Mental Status: alert / awake / arousable Patient Amnestic to Procedure: Yes Nausea / Vomiting: adequately controlled Pain: adequately controlled Airway Patency, RR, SpO2: stable & adequate BP & HR: stable & adequate Hydration State: stable & adequate Neuraxial Anesthesia: was administered and sensory block is resolving Anesthetic Complications: no major complications apparent
[2025-04-29] MEDS: SODIUM CHLORIDE 0.9% 1,000 ML IV SCH (15:06)
[2025-04-29] MEDS: Scopolamine CHECK PATCH PLACEMENT SCH (15:37)
--- NOTE | 2025-04-29 17:21 | Hospitalist Consultation ---
Date of Consultation April 29, 2025 Assessment & Plan (1) Status post total knee replacement: Assessment: 1. End-stage osteoarthritis left knee status post left total knee arthroplasty postop day 0 today. Doing well. 2. Hyperlipidemia. Continues to therapy. 3. Osteoporosis. Continue home meds as appropriate. 4. COPD without acute exacerbation. Continue home pulmonary toilet. Encourage incentive spirometry. 5. There was a questionable history of atrial fibrillation over the last year. She is Dr. With cardiology extensively with extensive testing per the patient and her son and daughter at the bedside atrial fibrillation has been ruled out the patient does not have atrial fibrillation. Plan: As described above. Patient's tentative plan after hospitalization is to rehab at home with home health for 2 weeks. Then do outpatient physical therapy. She lives in a one-story apartment. She does not have any steps to navigate. Please refer to orders for further planning. We thank you for the opportunity to participate in the care of Mrs. Vieira if she continues to convalesce or left total knee arthroplasty. History of Present Illness Reason for Consultation: Medical management. Attending Physician: Kalpesh Pereira MD History of Present Illness This is a pleasant 85-year-old female who presents today for osteoarthritis of the left knee who presented to [facility] to undergo left total knee arthroplasty today with orthopedics. The procedure went well and the proximal prescription was consulted for management. Allergies Allergy/AdvReac Type Severity Reaction Status Date / Time neomycin Allergy Mild Rash Verified 04/29/25 09:11 nickel Allergy Mild Rash to Verified 04/29/25 09:11 nickel sulfate polymyxin B Allergy Mild Rash Verified 04/29/25 09:11 Penicillins Allergy Unknown Rash Verified 04/29/25 09:11 clarithromycin AdvReac Mild Nausea/vomi Verified 04/29/25 09:11 ting Home Medications Medication Instructions Recorded Confirmed Type calcium 600 mg (as carbonate)-vit 1 tab PO QAM 04/08/19 04/29/25 History D3 20 mcg (800 unit) chewable tablet (Caltrate plus D) alendronate 70 mg tablet 70 mg PO Q7D 03/16/20 04/29/25 History albuterol sulfate 90 mcg/actuation 2 puff inhalation Q4H PRN 08/15/23 04/29/25 Rx aerosol inhaler (ProAir HFA) Shortness Of Breath Or Wheezing #18 grams nebulizer accessories #1 ea 08/21/23 04/29/25 Rx psyllium husk 0.52 gram capsule 0.52 g PO QAM Constipation 08/30/23 04/29/25 History (Metamucil) acetaminophen 325 mg tablet 650 mg PO QID PRN Pain 11/03/23 04/29/25 History mometasone 50 mcg/actuation nasal 2 spray intranasal HS #51 grams 03/11/24 04/29/25 Rx spray fluticasone fur. 100 mcg-umeclid 1 inh inhalation QAM #3 Inhalers 05/10/2404/29 Rx 62.5 mcg-vilant 25 mcg inhalat.powder (Trelegy Ellipta) albuterol sulfate 2.5 mg/3 mL 2.5 mg (3 mL) inhalation Q4H PRN 06/28/24 04/29/25 Rx (0.083 %) solution for nebulization Shortness Of Breath Or Wheezing #180 mL sodium chloride 3 % for 4 ml inhalation BID PRN Cough and 06/28/24 04/29/25 Rx nebulization Congestion #750 mL cetirizine 10 mg tablet 10 mg PO DAILY PRN Allergy Symptoms 11/22/24 04/29/25 History montelukast 10 mg tablet 10 mg PO QPM #90 tabs 12/04/24 04/29/25 Rx rosuvastatin 5 mg tablet 5 mg PO QPM 12/11/24 04/29/25 History aspirin 81 mg tablet,delayed 81 mg PO QAM 04/14/25 04/29/25 History release (Adult Aspirin Regimen) fexofenadine 180 mg tablet 180 mg PO QAM PRN Allergy Symptoms 04/14/25 04/29/25 History Patient History Medical History Amaurosis fugax Intermittent episodes between 07/2024-10/2024 of: vision changes/diplopia/lightheadedness/perceived green flases of light/blurry vision episodes Follows with [facility] neuro, unremarkable carotid imaging/ophthalmology evaluation; brain MRI 10/2024 with atrophy and chronic microvascular ischemic disease, incidental pineal gland cyst Asthma Bronchiectasis follows with Dr. Hammonds Carotid stenosis COPD (chronic obstructive pulmonary disease) GERD (gastroesophageal reflux disease) hx History of stroke Remote hx "many years ago"- evidence of old CVA noted on imaging; no residual effects Hx of supraventricular tachycardia Per [facility] 02/2025 visit: "SVT: She had brief episodes of SVT with her monitor, up to 28 beats in length. There was reported atrial fibrillation, but upon review of the rhythm strip by Dr. Messina, the episodes appeared to actually be SVT and not true a fib. There is therefore no current indication for anticoagulation therapy. She was asymptomatic with the episodes of SVT, therefore, no specific treatment is indicated at this time.." Osteoarthritis Knees Seasonal allergies Urinary incontinence Occasional Surgical History (Updated 04/29/25 @ 17:17 by Romeo Quevedo, PhD, DO) S/P anal fissurectomy Hx of bilateral cataract extraction History of colonoscopy (2023) History of bunionectomy History of arthroscopic knee surgery meniscus repair left History of dilation and curettage History of bronchoscopy multiple Family History Mother Colon cancer Other Asthma Family history non-contributory No family history of adverse response to anesthesia Denies family history of Bleeding disorder Social History Smoking Status: Former smoker Tobacco Type: Cigarettes Age Quit Using Tobacco: 51; packs per day: 1; Smoking End Date: Quit 60 years ago; Second Hand Exposure: Yes (hx growing up); Do You Dip or Chew Tobacco: No; Tobacco Cessation Education Requested by Patient: No Hx Alcohol Use: Yes Alcohol type: beer and wine Hx Substance Use: No Preferred Language: Italian Communication Ability: Effective 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 Physical Exam Physical Exam: In General: In general very pleasant 85-year-old female who is alert and oriented x 3 at the time of my exam. She is accompanied by both her son and her daughter at the time of my examination. At this point she has 0 postoperative pain. She does have a cough. Incentive spirometry is at the bedside. We have asked nursing to teach her how to use it as she has not used it yet. HEENT: Normocephalic atraumatic pupils are equal round and reactive to light bilaterally. No scleral icterus no conjunctival injection external auditory canals are patent septum is in the midline nose is without discharge oral mucosa is pink and dry. Below without lesion. NECK: Supple no rigidity no lymphadenopathy no thyromegaly no carotid bruits no JVD no masses. HEART: Regular rate and rhythm I do not appreciate any ectopy or rub. No murmur. LUNGS: Clear to auscultation bilaterally and anteriorly with no evidence of adventitious sounds/wheezes rales or rhonchi. ABDOMEN: Soft nontender, no rebound, no peritoneal signs, positive bowel sounds, no appreciable organomegaly. EXTREMITIES: Intact, no peripheral cyanosis, clubbing or edema. Neurovascular intact the left lower extremity is intact. Postoperative dressings intact and dry. NEUROLOGICAL: Cranial nerves II through XII are grossly intact with no focal deficit elicited upon examination. Results & Data Results & Data Vital Signs (Past 12 Hours) Vital Signs Temp Pulse Pulse Resp BP Pulse Ox O2 Del Method 04/29/25 16:24 36.2 C L 71 15 148/76 H 94 Room Air 04/29/25 15:26 36.3 C L 65 18 151/79 H 95 Room Air 04/29/25 14:56 36.3 C L 75 16 135/80 95 Room Air 04/29/25 14:26 64 16 145/74 H 95 Room Air 04/29/25 14:05 64 18 163/88 H 92 Room Air 04/29/25 13:45 59 L 24 180/96 H 96 Room Air 04/29/25 13:35 59 L 18 163/81 H 96 Room Air 04/29/25 13:25 56 L 17 159/72 H 95 Room Air 04/29/25 13:15 59 L 20 172/78 H 96 Room Air 04/29/25 13:05 60 20 172/78 H 96 Room Air 04/29/25 12:55 58 L 20 156/84 H 96 Room Air 04/29/25 12:45 62 18 150/72 H 95 Room Air 04/29/25 12:35 63 19 152/78 H 96 Room Air 04/29/25 12:26 36.1 C L 66 25 H 142/66 H 97 Room Air 04/29/25 08:30 36.3 C L 66 18 139/82 95 Room Air PG Care Time/CCT Total # of Minutes Spent Total Time Spent with Patient: Total time spent is greater than 50% in coordination of care (as documented) at patient's floor/unit and/or counseling patient: Coding Level of Care Code 05305 IN/OBS CONSULT LVL 4,60M Diagnoses Status post total knee replacement Z96.659
[2025-04-29] MEDS: FERROUS GLUCONATE 324 MG TAB PO SCH (17:24)
[2025-04-29] MEDS: ASCORBIC ACID 500 MG TAB PO SCH (17:24)
[2025-04-29] MEDS: ROSUVASTATIN CALCIUM 5 MG TAB PO SCH (20:15)
[2025-04-29] MEDS: MONTELUKAST SODIUM 10 MG TABLET PO SCH (20:15)
[2025-04-29] MEDS: DOCUSATE SODIUM 100 MG CAP PO SCH (20:15)
[2025-04-29] MEDS: SENNA 8.6 MG TAB PO SCH (20:15)
[2025-04-30 07:29] LABS: Hematocrit (blood only) 30.5 % (37.0-47.0); Hemoglobin 10.2 g/dl (12.0-16.0); Immature Granulocytes # (auto) 0.06 K/uL (0.01-0.20); Immature Granulocytes % (auto) 0.4 %; Mean Corpuscular Hemoglobin 30.8 pg (25.0-34.0); Mean Corpuscular Volume 92.1 fL (80.0-100.0); Platelet Count 265 K/uL (130-400); RDW Standard Deviation 45.0 fL (36.4-46.3); Red Blood Count 3.31 M/uL (4.20-5.40); White Blood Count 13.64 K/ul (4.8-10.8)
[2025-04-30 08:12] LABS: Alanine Aminotransferase 9.0 U/L (7-52); Albumin Globulin Ratio 1.4 (0.9-2); Albumin Level 3.4 gm/dl (3.4-5.0); Alkaline Phosphatase 45.0 U/L (34-104); Anion Gap 4.0 (3-11); Bilirubin,Total 0.5 mg/dl (0.2-1.0); Blood Urea Nitrogen 19.0 mg/dl (6-23); Calcium 9.3 mg/dl (8.6-10.3); Carbon Dioxide 26.0 mmol/L (21-32); Chloride 106.0 mmol/L (98-107); Cholesterol 104.0 mg/dl (0-200); Creatinine Clr Calc Pharmacy 46.7 ml/min; Globulin 2.4 gm/dl (2.5-4.0); Glucose 109.0 mg/dl (70-99(Fasting)); HDL Cholesterol 50.0 mg/dl; Magnesium 1.9 mg/dl (1.7-2.4); Potassium 4.3 mmol/L (3.5-5.1); Sodium 136.0 mmol/L (136-145); Total Protein 5.8 gm/dl (6.0-8.3); Triglycerides 66.0 mg/dl (0-150)
--- NOTE | 2025-04-30 08:21 | Orthopedic Progress Note ---
Date of Service April 29, 2025 Assessment & Plan (1) Osteoarthritis of left knee: Plan: POD #0 s/p L TKA, doing as well as expected. Resume diet. WBAT with walker. OOB to chair. Continue pain control. Check labs tomorrow. DVT prophylaxis: TEDs 3 weeks, foot pumps while in hospital, ASA 81 mg BID for 6 weeks. PT/OT. D/C planning. Dressing to be changed POD 2-3 to Silverlon type dressing. Admission and Anticipated Discharge Date Admission Date: April 29, 2025 Subjective Doing well Physical Exam Physical Exam: LLE: sensation to light touch intact distally. BCR < 2 sec. Able to do a straight leg raise. Gastroc soleus, Tib ant, EHL 5/5. Calf is soft non-tender. Dressing clean, dry, intact. Results & Data Vital Signs (Past 12 Hours) Vital Signs Temp Pulse Resp BP Pulse Ox O2 Del Method 04/30/25 04:19 36.5 C 56 L 16 117/65 96 Room Air 04/30/25 00:57 36.3 C L 60 16 110/70 96 Room Air 04/29/25 20:52 36.6 C 62 16 136/75 94 Room Air Diagnostic Findings XR knee LT 1 or 2V routine CLINICAL HISTORY: Postoperative evaluation. COMPARISON: Left knee radiographs June 27, 2024. FINDINGS: Alignment of the total left knee arthroplasty is anatomic. There is no periprosthetic fracture or unexpected radiopaque foreign body. IMPRESSION: Expected findings following total left knee arthroplasty.
[2025-04-30 08:26] VITALS: TEMP 97.3; O2SAT 94
[2025-04-30] MEDS: dexAMETHasone 10 MG in SYRINGE 0 ML IV SCH (08:27)
[2025-04-30] MEDS: CALCIUM 600MG + VIT D 400 IU TAB PO SCH (08:30)
[2025-04-30] MEDS: MULTIVITAMIN TAB PO SCH (08:30)
[2025-04-30] MEDS: ASPIRIN 81 MG ECTAB PO SCH (08:30)
[2025-04-30] MEDS: UMECLIDINIUM/VILANTEROL 62.5/25MCG 7 PUFFS/INHALER INH SCH (08:33)
[2025-04-30] MEDS: FLUTICASONE FUROATE 100MCG 14 PUFFS/INHALER INH SCH (08:33)
[2025-04-30] MEDS: PSYLLIUM HUSK 4GM PACKET PO SCH (08:39)
[2025-04-30] MEDS ORDERED: NON-FORMULARY MEDICATION (Fluticasone-Umeclidin-Vilanter [Trelegy Ellipta] 100-62.5-25 mcg INH SCH (09:00)
--- NOTE | 2025-04-30 09:29 | Orthopedic Progress Note ---
Date of Service April 30, 2025 Assessment & Plan (1) Osteoarthritis of left knee: (2) Status post total knee replacement: Plan: POD #1 s/p L TKA, doing as well as expected. Postoperative x-rays were reviewed and demonstrate expected findings Postoperative labs show a leukocytosis at 13.64 likely secondary to surgery and receiving steroids. Mild anemia with a hemoglobin of 10.2 likely secondary to acute blood loss from surgery. Vitals are stable. Patient will be evaluated by PT and OT. Anticipate discharge home with home health, which is set up. Patient will take aspirin 81 mg twice daily for 6 weeks for DVT prophylaxis. She will use ANETTE stockings for 3 weeks. Was instructed to bring her other ANETTE stockings to her follow-up appointment so we can help her apply it. Weightbearing as tolerated with walker. Pain control with Tylenol, Celebrex, and oxycodone. PDMP was reviewed with no concerns. Prescriptions for Celebrex and oxycodone were sent to [facility] pharmacy in [place]. She was instructed to take vitamin C and iron twice daily for the next 2 weeks. Advised her to elevate this under her heel to promote extension. She was instructed to work on her home physical therapy exercises. Ice 5 times daily 20 minutes at a time. Patient will follow-up in our office this coming 05/02/2025 for dressing change and silverlon application. This was reviewed with her. She will leave the Adolfo wrap dressing in place until then. Patient was advised to contact our clinic with any questions or concerns. Nursing conveyed to me after I had evaluated the patient that she was slightly confused, had forgotten that she was to be discharged home and thought it was the afternoon. I coordinated with Dr. Pompa, hospitalist, who evaluated the patient this morning and felt this was most likely secondary to receiving oxycodone 1.5 hours prior. After reviewing with Dr. Pereira, patient will wait for a few hours to make sure her confusion improves, and then we can try tramadol to make sure it controls her pain. If it is therapeutic, can send prescription for tramadol as first line for breakthrough pain, then use a half tab of the oxycodone if tramadol is not sufficient. Her daughter was present for this conversation and in agreement with plan. One of my PA colleagues will be up this afternoon to check on the patient. Admission and Anticipated Discharge Date Admission Date: April 29, 2025 Fran Pinedo is seen resting in bed this morning. She is doing well overall. Is having some increased pain in the left knee compared to yesterday which she admits is to be expected, received oxycodone and tolerated this well, this helped with the pain. She denies any numbness or tingling in her lower leg or foot, fevers, chills, chest pain, or shortness of breath. She has been up with nursing staff, but has not been evaluated by physical therapy or occupational therapy yet. She states that she would feel comfortable being discharged home to her apartment and has home health coordinated. Her daughter will be staying with her for the next few days and she has good support through her apartment complex. Physical Exam Constitutional: Resting comfortably in bed. In no distress. Pleasant. Cardiovascular: Left PT pulse 1+ Musculoskeletal: Left lower extremity: Dressing is clean, dry, and intact. Patient is just able to initiate a straight leg raise, causes pain. Strength 5/5 with ankle plantarflexion, dorsiflexion, eversion. Neurologic: No sensory deficits in left toes to light touch Results & Data Vital Signs (Past 12 Hours) Vital Signs Temp Pulse Resp BP Pulse Ox O2 Del Method 04/30/25 08:22 97.3 F L 58 L 16 116/53 L 94 Room Air 04/30/25 04:19 97.7 F 56 L 16 117/65 96 Room Air 04/30/25 00:57 97.3 F L 60 16 110/70 96 Room Air Laboratory Results 04/30/25 06:53 WBC 13.64 H RBC 3.31 L Hgb 10.2 L Hct 30.5 L MCV 92.1 MCH 30.8 MCHC 33.4 RDW Std Deviation 45.0 RDW Coeff of Olivia 13.3 Plt Count 265 MPV 9.4 Immature Gran % (Auto) 0.4 Neut % (Auto) 76.5 Lymph % (Auto) 12.8 [place] % (Auto) 9.8 Eos % (Auto) 0.4 Baso % (Auto) 0.1 Neut # (Auto) 10.43 H Lymph # (Auto) 1.75 [place] # (Auto) 1.33 H Eos # (Auto) 0.05 Baso # (Auto) 0.02 Immature Gran # (Auto) 0.06 Sodium 136 Potassium 4.3 Chloride 106 Carbon Dioxide 26 Anion Gap 4 BUN 19 Creatinine 0.79 Est Cr Clr Drug Dosing 46.7 eGFR 73.71 BUN/Creatinine Ratio 24.1 H Glucose 109 H Calcium 9.3 Magnesium 1.9 Total Bilirubin 0.5 AST 17 ALT 9 Alkaline Phosphatase 45 Total Protein 5.8 L Albumin 3.4 Globulin 2.4 L Albumin/Globulin Ratio 1.4 Triglycerides 66 Cholesterol 104 LDL Cholesterol, Calc 41 VLDL Cholesterol, Calc 13 HDL Cholesterol 50 Cholesterol/HDL Ratio 2.1 Diagnostic Findings Knee X-Ray 04/29/25 12:41 XR knee LT 1 or 2V routine CLINICAL HISTORY: Postoperative evaluation. COMPARISON: Left knee radiographs June 27, 2024. FINDINGS: Alignment of the total left knee arthroplasty is anatomic. There is no periprosthetic fracture or unexpected radiopaque foreign body. IMPRESSION: Expected findings following total left knee arthroplasty. ACT 112: Negative or not required by law. Electronically signed by: Stewart Anderson M.D. 04/29/2025 1:17 PM (2) Status post total knee replacement Laterality: left Qualified Code(s): Z96.652 - Presence of left artificial knee joint
[2025-04-30 10:58] VITALS: BP 153/77; PULSE 56; RESP 18
--- NOTE | 2025-04-30 11:17 | Discharge Summary ---
Date of Service April 30, 2025 Principal Diagnosis left knee osteoarthritist s/p left total knee arthroplasty Discharge Data Allergies Allergy/AdvReac Type Severity Reaction Status Date / Time neomycin Allergy Mild Rash Verified 04/29/25 09:11 nickel Allergy Mild Rash to Verified 04/29/25 09:11 nickel sulfate polymyxin B Allergy Mild Rash Verified 04/29/25 09:11 Penicillins Allergy Unknown Rash Verified 04/29/25 09:11 clarithromycin AdvReac Mild Nausea/vomi Verified 04/29/25 09:11 ting Consultations 04/24/25 11:50 Consult Hospitalist Routine Procedures Performed Operation Date: 04/29/25 10:00 Actual Procedures p Left Total Knee Arthroplasty(Left) - Kalpesh Pereira MD Ordered Studies 04/29/25 05:00 US - OR guided needle placemen Routine Hospital Course (1) Osteoarthritis of left knee: (2) Status post total knee replacement: Shahida Vieira is an 85-year-old female who underwent an uncomplicated left total knee arthroplasty with Dr. Pereira on 04/29/2025. She was observed in the hospital overnight and did not have any adverse events. Her vital signs remained stable. She received 24 hours of IV Ancef. Her pain was controlled with Tylenol, Celebrex, and oxycodone. Postoperative x-rays demonstrated expected findings. Postoperative lab work showed a leukocytosis at 13.64 likely secondary to surgery and receiving steroids. She had a mild anemia with a hemoglobin of 10.2 likely secondary to acute blood loss from surgery. Patient was evaluated by physical therapy and Occupational Therapy the following day after surgery and was cleared to be discharged home. Her daughter will be accompanying her for the next few days. Patient was noted to have slight confusion about 1.5 hours after receiving oxycodone the morning after surgery. She was evaluated by the hospitalist who felt this was likely secondary to oxycodone. It was also identified that the patient is having some mild dementia symptoms. Tramadol was given to her rather than oxycodone for additional pain control and she seemed to tolerate this well. Patient was reevaluated in the afternoon and pain was controlled with tramadol, so she was prescribed tramadol as first-line medication for breakthrough pain and then she and her daughter were instructed to use oxycodone but only a half tab for additional pain control. Her daughter will be managing his medications. She was also instructed to use Tylenol and Celebrex as first-line pain control. Patient will be taking aspirin 81 mg twice daily for 6 weeks for DVT prophylaxis, ANETTE stockings for the next 3 weeks. She will be weightbearing as tolerated with a walker. She will participate with home health and home physical therapy for the next 2 weeks. She was advised to take vitamin C and iron for the next 2 weeks to help recover from surgery. Advised her to elevate this under her heel to promote knee extension. She was instructed to work on her home physical therapy exercises. She was advised to ice 5 times daily for 20 minutes at a time over the next 3 to 5 days and then as needed. Patient was advised to keep her dressing in place until her follow-up appointment on 05/02/2025 for dressing change. She and her daughter were given our contact information to call the clinic with any questions or concerns in the interim. Total Time Total Time Spent Total Time Spent (In Minutes): 20 Discharge Plan Discharge Items Patient Disposition: Home - Home Health Services Reason For Visit: Left Knee Osteoarthritis Discharge Diagnosis: s/p L total knee arthroplasty Condition on Discharge: Good Activity: Per Instructions section Non-emergency contact: Surgeon Call non-emergency contact if: your symptoms worsen, your pain is not controlled, your pain is worsening, you have a fever, your wound has increased redness, your wound has increased drainage and your wound pain has increased Follow-up/Referrals: Dona Amador [Primary Care Provider] - Fernie Solorio PA-C [Physician [facility] Specialist] - 05/02/25 10:45 am Diet: Heart Healthy Addtl Attending Provider Instructions: POST OPERATIVE DISCHARGE INSTRUCTIONS Pain Control Please take the follow medications for pain control, as well as icing and elevating your operative extremity. Pain after surgery is to be expected. We may not be able to take away all of your pain, but the goal is to make your pain manageable - Extra strength Tylenol 1,000mg (2 tabs) every 8 hours - Celebrex 200mg twice a day for two weeks with food - Use tramadol as prescribed as first line therapy. - Oxycodone 1/2 tab of the oxycodone every 6 hours as needed for breakthrough pain. Blood clot prevention With any surgery, you are at increased risk for blood clots. Please take the follow measures to prevent blood clots and read the warning signs to watch for. Please take the follow anticoagulant: Aspirin 81mg twice a day for 6 weeks If you were given ANETTE compression stockings, these are to be worn on both legs for 18-20 hours daily for 3 weeks Warning signs: Calf pain, lower extremity swelling, numbness/tingling, skin discoloration, increased pain, shortness of breath, chest pain. Please contact our office if you experience any of these symptoms or call 911 if you are having trouble breathing. Ice Ice your operative site at least 5 times a day for 15-30 minutes at a time, for the first three days, then as needed. This will help to reduce swelling and pain. Make sure you have a thin cloth between the ice or cooling unit and your skin to prevent sawyer bite. This is especially important if you received a nerve block. When you are icing, prop your leg up with pillows/blankets under the ankle, NOT under the knee, to avoid getting a flexion contracture and to help get the knee extended. Diet/Nausea/Vomiting Start by drinking clear liquids and eating crackers. If you can tolerate this, then you may resume your normal diet. If you feel nauseated or vomit, take Zofran/ondansetron (if prescribed). Please call our office if you have intractable nausea or vomiting, or, if after hours, you may go to the Emergency Room for help. Surgical Dressing Please leave on any dressing until you are seen by the PA for your post- operative appointment. If there are any issues with your dressing please notify your home health nurse or give our office a call. Weight bearing, Range of Motion, Activity You will be weight bearing as tolerated on your operative site. You will need a walker to assist in ambulation. You can begin doing range of motion immediately You are encouraged to stand and walk short distances in the house as tolerated with your walker Physical therapy You will do your rehab for the first two weeks with home health. Then you will begin outpatient physical therapy. It is very important you follow your rehab protocol and do your exercises as instructed by your provider and physical therapist. Wound Care and Showering We will inspect your wound at your first post-operative visit. It is normal to see some dried blood on the dressing. Do not remove your dressing, paper strips or sutures yourself unless otherwise instructed. Showering is allowed post op day 3. Once your dressing is changed in the office to the water-resistant dressing. You can shower with this on as long as all the edges are in tact. You may want to reinforce with waterproof covering (i.e Press N Seal) To promote wound healing, we recommend taking a multi-vitamin, or taking 500mg Vitamin C supplement twice a day for two weeks and 325mg Iron supplement twice a day for two weeks. Constipation Constipation is a common side effect of narcotic pain medication, dehydration after surgery and iron supplement (if you were instructed to begin that after surgery). We recommend purchasing an [id number]-uth-mtobqmb laxative such as Milk of Magnesia, Colace, Dulcolax, Miralax or Senna from a local pharmacy, and taking it as instructed. Stay hydrated and you may increase your fiber in your diet as well. Call our clinic if any questions. Driving You may not drive while taking narcotic pain medication and until you have full function of your leg. Length of time you can expect to be unable to drive varies from person to person, and depends on which knee is getting replaced, but as a general rule of thumb plan for 4-6 weeks no driving Driving will be discussed at your first post op appointment Travel Avoid long distance travel (greater than 1 hour) in airplanes and cars for the first 6 weeks after surgery. Follow-up Please attend your post operative appointments as scheduled. At these appointments, we may do dressing change and remove any sutures/rudy/Zip-line 10-14 days after your surgery. If you do not know your post operative appointment dates or times please call the office at [phone] When to call the office It is normal to have swelling and bruising in the limb that was operated on. This will improve with time. It is also normal to have fevers for the first 2 days after surgery. Reasons you should call your doctor include: Uncontrolled pain; Nausea, vomiting, or constipation that does not improve with medication; Fevers over 101.5, chills, sweats; Drainage or bleeding from the wound; Foul odor; Spreading areas of redness; calf pain or swelling, shortness of breath, chest pain; Any other concerns You may call the office at [phone]. If it is a medical emergency please call [phone]. Pending Studies at Discharge: Yes Studies:: Routine bone and soft tissue Stand-Alone Forms: [facility], Smoking Cessation Medications and DC Order Prescriptions: New ferrous gluconate 324 mg (38 mg iron) Tablet 324 mg PO BIDM Qty: 30 0RF acetaminophen [Tylenol Extra Strength] 500 mg Tablet 1,000 mg PO Q8H Qty: 30 0RF aspirin 81 mg Tablet,Delayed Release (Dr/Ec) 81 mg PO BID Qty: 30 0RF celecoxib [Celebrex] 200 mg Capsule 200 mg PO BID 14 Days Qty: 28 0RF ascorbic acid (vitamin C) [Vitamin C] 500 mg Tablet 500 mg PO BIDM Qty: 30 0RF oxycodone 5 mg Tablet 5 mg PO Q6H PRN (Reason: pain) Qty: 18 0RF tramadol 50 mg tablet 50 mg PO Q4H Qty: 18 0RF Rx Instructions: do not exceed 6 tabs in a 24 hour period Continued albuterol sulfate [ProAir HFA] 90 mcg/actuation HFA aerosol inhaler 2 puff inhalation Q4H PRN (Reason: Shortness Of Breath Or Wheezing) Qty: 18 2RF (DME) nebulizer accessories Kit See Rx Instructions .ROUTE .MEDSUPPLY Qty: 1 0RF Rx Instructions: As directed mometasone 50 mcg/actuation spray,non-aerosol 2 spray INTRANASAL HS Qty: 51 3RF Trelegy Ellipta 100-62.5-25 mcg blister with device 1 inh inhalation QAM Qty: 3 3RF albuterol sulfate 2.5 mg /3 mL (0.083 %) solution for nebulization 2.5 mg INH Q4H PRN (Reason: Shortness Of Breath Or Wheezing) Qty: 180 6RF sodium chloride 3 % solution for nebulization 4 ml INH BID PRN (Reason: Cough and Congestion ) Qty: 750 0RF Patient Comments: using twice daily recently Rx Instructions: Mix 4mL with albuterol nebulized 1 or 2 times daily as needed for congestion followed by flutter montelukast 10 mg tablet 10 mg PO QPM Qty: 90 3RF psyllium husk [Metamucil] 0.52 gram capsule 0.52 g PO QAM cetirizine 10 mg tablet 10 mg PO DAILY PRN (Reason: Allergy Symptoms) rosuvastatin 5 mg tablet 5 mg PO QPM Caltrate 600 plus D 600 mg (1,500 mg)-800 unit tablet,chewable 1 tab PO QAM alendronate 70 mg tablet 70 mg PO Q7D fexofenadine 180 mg Tablet 180 mg PO QAM PRN (Reason: Allergy Symptoms) Held acetaminophen 325 mg Tablet 650 mg PO QID PRN (Reason: Pain) Hold Instructions: Resume on 05/28/25. aspirin [Adult Aspirin Regimen] 81 mg tablet,delayed release (DR/EC) 81 mg PO QAM Hold Instructions: Resume on 05/28/25. Admission Data Admit Date/Time: 04/29/25 12:41 Attending Provider: Kalpesh Pereira Admit Provider: Kalpesh Pereira Primary Care Provider: Dona Amador Other Providers: [facility],Home Healthcare; Deanna Pompa Other Interventions: Discharge Summary Assessment (RN) Last Done: 04/30/25 14:11
--- NOTE | 2025-04-30 13:48 | Communication Note ---
Date of Service: April 30, 2025 Saw patient and spoke with her and her daughter. She reports that she is feeling better. She feels ready to go home. Pain is controlled with tramadol. S he seems to still be somewhat mildly confused but reports improvement and she says she does have some baseline dementia and does sometimes get confused. She has no concerning signs including slurred speech, facial dropping, weakness. She was evaluated by hospitalist who felt it was due to the oxycodone and oxycodone has since been held. Her daughter is going to be staying with her 16/01. She has no concerns. Advised to not take the oxycodone only if for severe breakthrough pain can try 1/2 tab. Tramadol was sent as a first line agent along with tylenol and celebrex. If pain is controlled with tylenol and celebrex, I would avoid tramadol. Will be seeing her back in our office on Monday. Her and her daughter were made aware that if anything worsens or if they have any questions please give our office a call.
--- NOTE | 2025-04-30 20:49 | Hospitalist Progress Note ---
Date of Service April 30, 2025 Assessment & Plan (1) Status post total knee replacement: Plan: This patient is an 85-year-old female with a history of CVA, bronchiectasis, osteoporosis, hyperlipidemia, here recovering from left TKA. #Left TKA/OA-doing well postoperatively, minimal drop in Hgb, pain is controlled. Oxycodone causing mild confusion-discussed with daughter who will monitor patient at home - Follow-up with orthopedic surgery as planned after discharge - Continue aspirin twice daily for DVT prophylaxis on discharge #Hyperlipidemia-continue rosuvastatin #Osteoporosis. Continue home meds as appropriate. #Bronchiectasis-no acute issues -continue home pulmonary toilet #CVA-continue aspirin, statin Stable for discharge to home Admission and Anticipated Discharge Date Admission Date: April 29, 2025 Subjective Patient reports her pain in the knee is controlled. She was a little bit confused at times thinking it is the afternoon when it is the morning. I discussed her care with the orthopedic surgery PA and with the patient's daughter. Patient otherwise is doing well, no complaints. Physical Exam Constitutional: WD/WN, vitals as above Respiratory: normal respiratory effort, lungs clear to auscultation Cardiovascular: RRR, no murmur, no edema Results & Data Results & Data Vital Signs (Past 12 Hours) Vital Signs Temp Pulse Resp BP Pulse Ox O2 Del Method 04/30/25 14:11 36.3 C L 56 L 18 153/77 H 94 04/30/25 10:57 36.3 C L 56 L 18 153/77 H 94 Room Air Laboratory Results CBC, BMP, LFTs, magnesium, lipid panel reviewed PG Care Time/CCT Total # of Minutes Spent Total Time Spent with Patient: Total time spent is greater than 50% in coordination of care (as documented) at patient's floor/unit and/or counseling patient: Coding Level of Care Code 19852 SUB INP/OBS CARE 07/20MIN Diagnoses Status post total left knee replacement Z96.652 Laterality: left (1) Status post total knee replacement Laterality: left Qualified Code(s): Z96.652 - Presence of left artificial knee joint
[2025-05-02] MEDS ORDERED: Scopolamine REMOVE TRANSDERM PATCH ONE (08:00)
== END 2025-04-30 14:45 | disposition home health service (06) ==
LOC: ASU 08:07 → 3E 08:07